=== PATIENT | male | born 1950 | race Hispanic/Latino ===

== ENCOUNTER 2020-02-14 06:27 | Inpatient (IN) | payer OTHER ==
--- NOTE | 2020-02-08 14:39 | Diagnostic Imaging Report ---
EXAMINATION: CHEST 2 VIEWS INDICATION: Pre-operative COMPARISON: None FINDINGS: LINES/TUBES:None LUNGS:The lungs are well-inflated. No focal consolidation or pulmonary edema. PLEURA:No pleural effusion or pneumothorax. MEDIASTINUM:The cardiomediastinal silhouette appears normal in size and shape. BONES/SOFT TISSUES:No acute osseous injury. ABDOMEN:No free air under the diaphragm. IMPRESSION: No focal pneumonia or pulmonary edema. Signed by: Connie Ramirez MD on 02/08/2020 2:35 PM
[2020-02-08 14:57] LABS: BASOPHILS # (AUTO) 0.1 (0.0-0.1); BASOPHILS % 0.5 % (0.0-1.0); EOSINOPHILS # (AUTO) 0.3 (0.0-0.4); HEMATOCRIT 47.5 % (38.2-49.6); HEMOGLOBIN 15.5 g/dL (14.0-18.0); LYMPHOCYTES # (AUTO) 1.5 (1.0-3.2); LYMPHOCYTES % 14.8 % (18.0-39.1); MEAN CORPUSCULAR HEMOGLOBIN 29.4 pg (28-32); MEAN CORPUSCULAR HGB CONC 32.6 g/dL (31-35); MEAN CORPUSCULAR VOLUME 90.1 fL (81-99); MONOCYTES # (AUTO) 0.7 (0.2-0.8); MONOCYTES % 7.5 % (4.4-11.3); NEUTROPHILS # (AUTO) 7.3 (2.1-6.9); NEUTROPHILS % 73.9 % (38.7-80.0); PLATELET COUNT 226 x10e3/uL (140-360); RED BLOOD COUNT 5.27 x10e6/uL (4.3-5.7); RED CELL DISTRIBUTION WIDTH 14.5 % (11.7-14.4)
[2020-02-08 15:18] LABS: ALANINE AMINOTRANSFERASE 11 IU/L (0-55); ALBUMIN 3.6 g/dL (3.5-5.0); ALBUMIN/GLOBULIN RATIO 1.1 (0.8-2.0); ALKALINE PHOSPHATASE 68 IU/L (40-150); ANION GAP 16.9 mmol/L (8-16); BLOOD UREA NITROGEN 16 mg/dL (7-26); BUN/CREATININE RATIO 14 (6-25); CALCIUM 10.5 mg/dL (8.4-10.2); CARBON DIOXIDE 30 mmol/L (22-29); CHLORIDE 100 mmol/L (98-107); CREATININE, SERUM 1.18 mg/dL (0.72-1.25); EST GLOMERULAR FILTRATION RATE > 60 ML/MIN (60-); GLUCOSE 90 mg/dL (74-118); POTASSIUM 3.9 mmol/L (3.5-5.1); SODIUM 143 mmol/L (136-145)
[~2020-02-14] VITALS: Ht 177.8 cm; Wt 113.4 kg
[~2020-02-14 06:27] MED LIST: AMIODARONE HCL200 MG PO; CARVEDILOL12.5 MG PO; FUROSEMIDE40 MG PO; OLMESARTAN/HCTZ PO; POTASSIUM CHLO20 ME1 PO; PRADAXA150 MG PO
[2020-02-14] MEDS ORDERED: CEFAZOLIN SOD 1 GM/NS 50ML 100 ML IV ONE (07:23)
[2020-02-14] MEDS ORDERED: IOPAMIDOL 300MG/ML 50ML INFUS..BTL IV ONE (07:40)
[2020-02-14] MEDS ORDERED: B&O 60MG R/S 60 MG SUPP PR ONE (08:00)
--- NOTE | 2020-02-14 11:21 | NUR ---
RECEIVED PATIENT FROM PACU. PATIENT A/O X3, EVEN RESPIRATIONS ON 2LNC. LUNG SOUNDS CLEAR. HANCOCK IN PLACE WITH ORANGE COLOR URINE. PATIENT DENIES PAIN. RIGHT HAND IV INTACT/PATENT. IVF INFUSING AT ORDERED RATE. CALL LIGHT IN REACH WILL CONTINUE TO MONITOR PATIENT.
[2020-02-14] MEDS ORDERED: KETOROLAC TROMETHAMINE 60 MG/2 ML VIAL IM PRN (11:45)
[2020-02-14] MEDS ORDERED: TRAMADOL HCL 50 MG TAB PO PRN (11:45)
[2020-02-14] MEDS ORDERED: B&O 60MG R/S 60 MG SUPP PR PRN (11:45)
[2020-02-14 12:00] VITALS: BP 166/87
[2020-02-14 12:16] VITALS: BP 166/87
[2020-02-14 12:19] VITALS: BP 166/87
[2020-02-14] MEDS: DEXTROSE 5%/0.45% SOD CHL 1,000 ML IV SCH ×2 (13:03→22:37)
--- NOTE | 2020-02-14 13:19 | Operative Report ---
DATE OF PROCEDURE: 02/14/2020 SURGEON: Parmjit Lopez MD PREOPERATIVE DIAGNOSES: 1. Acute urinary retention. 2. Benign prostatic hyperplasia. 3. Bladder stone. POSTOPERATIVE DIAGNOSES: Benign prostatic hyperplasia and bladder stones, 3 of them and urinary retention. PROCEDURES: Cystoscopy, holmium YAG laser lithotripsy of multiple bladder stones, stone extraction, and transurethral resection and electrode vaporization with plasma button of the prostate. ANESTHESIA: General. FINDINGS: The patient had 3 stones in the bladder, treated with the laser. The patient had a trabeculated bladder with cellules and saccules. The patient has a large prostate. Quite a bit of amount of anterior prostate. 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 HISTORY: A 69-year-old male, who comes to the office complaining of leakage and incontinence of urine. He was found to be in urinary retention and having hydronephrosis bilaterally. Requiring Rivas catheter drainage for a month. Cystoscopy showed stones in the bladder and the patient is brought in for transurethral resection of the prostate and stone treatment. I discussed with him all the complications of the procedure including incontinence of urine. I gave him a pamphlet. The patient agrees with the procedure as planned. PROCEDURE IN DETAIL: With the patient under satisfactory general anesthesia, the patient was placed in the supine position on the operating table. Legs were placed on stirrups. Rivas catheter was removed. The genitalia prepped with pHisoHex solution and draped in the usual manner. Cystoscopy was performed. The stones were visualized. The urethra was normal. At this point, using the laser with a 550 fiber, multiple shocks were given to the stones to break them into smaller fragments and then they were retrieved by using the [employer] evacuator, and this was sent in for pathological specimen. After that was done, cystoscope was removed and the resectoscope was placed in. Resection was done using the loop electrode. The [employer] evacuator was used to remove prostatic chips from the bladder. The loop was then replaced with the plasma button and electrode vaporization of the remaining tissue was done. It was noted that the patient has pelvic lipomatosis, so his prostate was very elongated, did have problems reaching the bladder neck. After the operation of the tissue was done, hemostasis was obtained and at that point, I inspected again the bladder, which was severely trabeculated with saccules and did not notice any remaining bladder stone or prostatic tissue. At this point, the instruments were removed. Rivas catheter was inserted using a catheter introducer and after that was done, the bladder was irrigated and the balloon was inflated. B and O suppository were placed in the rectum. The patient tolerated the procedure well, went to recovery room in satisfactory condition. DISCHARGE INSTRUCTIONS: The patient stayed in the hospital overnight till the next morning, the patient was doing well and had no fever and no clots, and the patient was discharged with a Rivas catheter leg bag and overnight bag. He was given Keflex to take b.i.d. and tramadol for pain. He will be seen in the office in 4 days to remove the Rivas catheter. He is to remain in all his medication except for Pradaxa, which will be started when I check him in the office and make sure his urine is clear. This will be in approximately 7 to 10 days. The patient is to maintain his diet. If the patient stayed an extra day for an undisclosed condition, then a separate dictation will be made for his discharge. MD ARIES Howard/MODL /[id number]
[2020-02-14] MEDS ORDERED: ACETAMINOPHEN 1000 MG/100 ML IV ONE (14:52)
[2020-02-14] MEDS ORDERED: SEVOFLURANE INHAL SOLN 250 ML PEN BTL ONE (14:52)
[2020-02-14] MEDS ORDERED: ROCURONIUM BROMIDE 10 MG/ML 5ML VIAL IV ONE (14:52)
[2020-02-14] MEDS ORDERED: ONDANSETRON HCL INJ 2MG/ML 2ML 2 MG/ML VIAL ONE (14:52)
[2020-02-14] MEDS ORDERED: ATROPINE SULFATE 1 MG/ML VIAL ONE (14:52)
[2020-02-14] MEDS ORDERED: PROPOFOL IV EMULSION 10 MG/ML 20 ML VIAL ONE (14:52)
[2020-02-14] MEDS ORDERED: LIDOCAINE HCL 2% LOCAL INJ 5 ML SDV VIAL INJ ONE (14:52)
[2020-02-14] MEDS ORDERED: SUCCINYLCHOLINE CHLORIDE 20 MG/ML 10ML VIAL ONE (14:52)
[2020-02-14] MEDS ORDERED: NEOSTIGMINE 1 MG/ML 10ML VIAL ONE (14:52)
[2020-02-14] MEDS ORDERED: DEXAMETHASONE SOD PHOS INJ 4 MG/ML VIAL ONE (14:52)
[2020-02-14 16:19] VITALS: BP 149/77
[2020-02-14 20:00] VITALS: BP_SYST 121; BP_SYST 133; BP_DIAS 58; BP_DIAS 69
--- NOTE | 2020-02-14 20:01 | NUR ---
RECIVED PT IN BED AOX3 RESPIRATIONS ARE EVEN AND UNLABORED ,PT HAS F/C DRAINING LIGHT FUNMILAYO COLORED URINE RT HAND D512 NS AT 125 CC/H INFUSING ABD DISTENDED CALL LIGHT WITH IN REACH ,CONTINUE TO MONITOR
[2020-02-14 20:37] VITALS: BP 149/77
[2020-02-15] VITALS: BP 133/58
[2020-02-15 04:00] VITALS: BP 123/74
--- NOTE | 2020-02-15 06:40 | NUR ---
PT RESTING DENIES PAIN ,CALL LIGHT WITH IN REACH ,CONTINUE TO MONITOR
[2020-02-15] MEDS: DEXTROSE 5%/0.45% SOD CHL 1,000 ML IV SCH ×2 (06:49→11:45)
--- NOTE | 2020-02-15 07:21 | NUR ---
BEDSIDE REPORT GIVEN TO THE ONCOMING NURSE
[2020-02-15 09:05] VITALS: BP 135/74
[2020-02-15 10:45] VITALS: BP 135/74
--- NOTE | 2020-02-15 12:19 | NUR ---
PATIENT STATED THAT THE PHYSICIAN SAID THAT HE WANTED THE PATIENT TO TAKE AN ANTIBIOTIC AFTER DISCHARGE HOME, CALL Shahida LEE TO CHECK ON PRESCRIPTION ORDERS, [employer] SWITCHMAN STATED THAT HE WOULD CALL BACK SHORTLY.
[2020-02-15 12:30] VITALS: BP 151/80
--- OUTSIDE RECORDS SUMMARY | 2020-02-15 20:35 | XMS REPORT | Summary of Care ---
Author Author [facility] Organization [facility] Address Unknown Phone Unavailable Encounter MICHELLE Glynn(FIN) [id number] Date(s): 08/07/18 - 08/08/18 [facility] [address] [facility] [facility] [address] [place] [address]- Vital Signs No data available for this section Problem List Condition Effective Dates Status Health Status Informan t Allergic contact Active dermatitis(Confirmed ) Benign essential Active hypertension(Confirm ed) Body mass index Active 38.0-38.9, adult(Confirmed) CPAP (continuous Active positive airway pressure) dependence(Confirmed ) Electrocardiogram 01/16/15 Active abnormal1 History of colonic Active polyps(Confirmed) Impaired fasting Active glucose(Confirmed) Lumbago(Confirmed) Active Mixed Active hyperlipidemia(Confi rmed) Decreased strength Active of lower extremity(Confirmed) Nocturia(Confirmed) Active Obesity(Confirmed) Active Obstructive sleep Active apnea(Confirmed) Lower extremity Active pain, right(Confirmed) Peripheral 01/16/15 Active edema(Confirmed)2 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 2Data migrated from [employer] on 01/22/15. Allergies, Adverse Reactions, Alerts Substance Reaction Severity Status NKFA Active amLODIPine leg edema Active Medications amlodipine/hydrochlorothiazide/olmesartan 10 mg-25 mg-40 mg oral tablet 1 tab, PO, Daily, # 90 tab, 1 Refill(s), Pharmacy: [facility]kr[facility] johnson, Stop amlodipine/HCTZ/valsartan Start Date: 08/07/18 Stop Date: 01/15/19 Status: Discontinued hydrochlorothiazide-olmesartan 25 mg-40 mg oral tablet 1 tab, PO, Daily, # 90 tab, 1 Refill(s), Pharmacy: [facility] Krupa johnson D/C amlodipine/olmesartan/HCTZ Start Date: 02/18/19 Stop Date: 08/17/19 Status: Ordered Metoprolol Succinate ER 50 mg oral tablet, extended release 50 mg = 1 tab, PO, Daily, # 90 tab, 1 Refill(s), Pharmacy: [facility] Start Date: 08/07/18 Stop Date: 02/18/19 Status: Completed Metoprolol Succinate ER 50 mg oral tablet, extended release = 1 tab, PO, Daily, # 90 tab, Refill(s) 1, Pharmacy: [facility] Start Date: 02/18/19 Status: Ordered NIFEdipine 60 mg oral tablet, extended release 60 mg = 1 tab, PO, Daily, # 90 tab, 1 Refill(s), Pharmacy: [facility] Start Date: 02/18/19 Stop Date: 08/17/19 Status: Ordered Results No data available for this section Immunizations Given and Recorded Vaccine Date Status Refusal Reason influenza virus vaccine, inactivated1 04/04/18 Given influenza virus vaccine, inactivated2 04/12/17 Given influenza virus vaccine, inactivated 04/08/16 G iven pneumococcal 23-valent vaccine 07/23/13 Recorde d 1Result Comment: Patient waited 15 min with no reaction. 2Result Comment: Patient waited 15 min with no reaction. Procedures Procedure Date Related Diagnosis Body Site Status Colonoscopy1 05/22/18 Completed Influenza vaccination 04/04/18 Completed Glaucoma monitoring2 02/15/18 Completed Glaucoma monitoring3 11/21/17 Completed Comprehensive eye examination4 09/2016 Complet ed Pneumococcal vaccination5 07/23/13 Completed Colonoscopy6 2011 Completed Foot joint operations7 Completed Knee joint operation8 Completed 1single sessile 5 mm polyp of benign appearance s/p polypectomy, int hemorrhoids, repeat 3 years 2IOP adequate, continue current eye drops, 3open angle glaucoma, IOP adequate, f/u 3 mo 4primary open angle glaucoma of both eyes 5Pneumovax 6one polyp removed, repeat in 5 years 7due to work injury - 2013 8due to work injury - 2013 Social History Social History Type Response Substance Abuse Use: None. Exercise Exercise type: none. Employment/School Status: Retired. 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 Alcohol Current, Type Beer. Alcoho l use interferes with work or home: No. Drinks more than intended: No. Others hurt by drinking: No. Ready to change: No. Household alcohol concerns: No.1 Smoking Status Never smoker; Concerns abou t tobacco use in household: No; Exposure to Tobacco Smoke None; Cigarette Smoking L ast 365 Days No; Reg Smoking Cessation Counseling No entered on: 01/31/19 1On Occasion Assessment and Plan No data available for this section
--- OUTSIDE RECORDS SUMMARY | 2020-02-15 20:35 | XMS REPORT | Continuity of Care Document ---
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 DOPP Active 01/13/2017 [facility] ROUTINE GENERAL MEDICAL EXAMINATION AT A HEALTH CARE FACILITY Active 01/16/2015 Condition 01/22/2015 [facility] PROSTATE NEOPLASM SCREENING Ac tive 01/16/2015 Condition 01/22/2015 [facility] SCREENING FOR MALIGNANT NEOPLASM, COLON Active 01/16/2015 Condition 01/22/2015 [facility] BENIGN ESSENTIAL HYPERTENSION Active 01/16/2015 Condition 01/22/2015 [facility] PERIPHERAL EDEMA Active 01/16/2015 Condition 01/22/2015 [facility] ABNORMAL EKG Active 01/16/2015 Condition 01/22/2015 [facility] SCREENING FOR GLAUCOMA Active 01/16/2015 Condition 01/22/2015 [facility] Abnormal ECG (finding) Active 01/16/2015 Problem 08/04/2019 Data migrated from [employer] on . [facility] Peripheral edema (disorder) Ac tive 01/16/2015 Problem 08/04/2019 Data migrated from [employer] on . [facility] Benign essential hypertension (disorder) Active Problem 08/04/2019 [facility] Claudication (finding) Active Problem 01/22/2017 [facility] Dependence on continuous positive airway pressure ventilation (finding) Active Prob birdie 08/04/2019 [facility] History of polyp of colon (situation) [facility] Impaired fasting glycaemia (disorder) Active Problem [facility] Low back pain (disorder) Active Problem 08/04/2019 [facility] Mixed hyperlipidemia (disorder) Active [facility] Obstructive sleep apnea syndrome (disorder) Active Problem 08/04/2019 [facility] Primary open angle glaucoma (disorder) Active [facility] Reducible umbilical hernia (disorder) Active [facility] Screening status (finding) Act emerson [facility] Thyroid function tests abnormal (finding) Active Problem 01/22/2017 [facility] Vascular disorder of lower extremity (disorder) Active Problem 08/04/2019 [facility] Venous insufficiency of leg (disorder) Active [facility] Pain in right leg (finding) Ac tive Problem 06/2019 [facility] Allergic contact dermatitis (disorder) Active [facility] Body mass index 30+ - obesity (finding) Active Problem 08/04/2019 [facility] Increased hemoglobin (finding) Active [facility] Muscle weakness of limb (finding) Active [facility] Nocturia (finding) Active Problem 08/04/2019 [facility] Obesity (disorder) Active Problem 08/04/2019 [facility] Pain in left leg (finding) Act emerson [facility] Raised TSH level (finding) Res olved Problem [facility] Subclinical hypothyroidism (disorder) Active [facility] Vaccination required (finding) Active [facility] Morbid obesity (disorder) Acti ve [facility] Patient encounter status (finding) Active Problem [facility] EDEMA, UNSPECIFIED Active [facility] VENOUS INSUFFICIENCY (CHRONIC) (PERIPHER Active [facility] PERIPHERAL VASCULAR DISEASE, UNSPECIFIED Active [facility] Medications Medication Details Route Status Patient Instructions Ordering Provider Order Date Source NIFEdipine 60 mg oral tablet, extended release 60 mg = 1 tab, PO, Daily, # 90 tab, 1 Refill(s), Pharmacy: [facility] Active 02/19/2019 [facility] Hydrochlorothiazide 25 MG / Olmesartan m edoxomil 40 MG Oral Tablet 1 tab, PO, Daily, # 90 tab, 1 Refill(s), Pharmacy: [facility], D/C amlodipine/olmesartan/HCTZ Active 02/19/2019 [facility] Metoprolol Succinate ER 50 mg oral table t, extended release = 1 tab, PO, Daily, # 90 tab, Refill(s) 1, Pharmacy: [facility] Active 02/19/2019 [facility] NIFEdipine 60 mg oral tablet, extended release 60 mg = 1 tab, PO, Daily, # 90 tab, 0 Refill(s), [id number] Active 01/24/2019 [facility] Hydrochlorothiazide 25 MG / Olmesartan m edoxomil 40 MG Oral Tablet 1 tab, PO, Daily, # 90 tab, 1 Refill(s), Pharmacy: [facility], D/C amlodipine/olmesartan/HCTZ Active 12/01/2018 [facility] Clonidine Hydrochloride 0.2 MG Oral Tablet 0.2 mg = 1 tab, PO, BID, # 180 tab, 1 Refill(s), Pharmacy: [facility] Active 12/01/2018 [facility] Clonidine Hydrochloride 0.1 MG Oral Tablet = 1 tab, PO, BID, # 180 tab, Refill(s) 1, Pharmacy: [facility] Active 11/04/2018 [facility] Metoprolol Succinate ER 50 mg oral table t, extended release 50 mg = 1 tab, PO, Daily, # 90 tab, 1 Re fill(s), Pharmacy: [facility] No Longer Active 08/07/2018 [facility] Amlodipine 10 MG / Hydrochlorothiazide 2 5 MG / Olmesartan medoxomil 40 MG Oral Tablet 1 tab, PO, Daily, # 90 tab, 1 Refill(s), Pharmacy: [facility], Stop amlodipine/HCTZ/valsartan No Longer Active 08/07/2018 [facility] baclofen 10 mg oral tablet 10 mg = 1 tab, PO, BID, PRN Spasms, # 40 tab, 0 Refill(s), [id number] Active 06/19/2018 Medical [facility] Azithromycin 5 Day Dose Pack 250 mg oral tablet See Instructions, Take 2 tablets by mouth the first day then 1 tablet by mouth days 2-5., X 5 day, # 6 tab, 0 Refill(s), [id number] No Longer Active 06/19/2018 [facility] diclofenac sodium 75 mg oral enteric coa leonardo, delayed-release tablet 75 mg = 1 tab, PO, BID, PRN Pain, # 40 t ab, 0 Refill(s), [id number] Active 06/19/2018 [facility] Amlodipine 10 MG / Hydrochlorothiazide 2 5 MG / Olmesartan medoxomil 40 MG Oral Tablet 1 tab, PO, Daily, X 90 day, # 90 tab, 1 Refill(s), Pharmacy: [facility], Stop amlodipine/HCTZ/valsartan No Longer Active 04/05/2018 [facility] Clonidine Hydrochloride 0.1 MG Oral Tablet 0.1 mg = 1 tab, PO, BID, # 180 tab, 1 Refill(s), Pharmacy: [facility] Active 11/03/2017 [facility] Amlodipine 10 MG / Hydrochlorothiazide 2 5 MG / valsartan 320 MG Oral Tablet 1 tab, PO, Daily, # 90 tab, 1 Refill(s), Pharmacy: [facility], Discontinue Tribenzor HCT Active 11/03/2017 [facility] Metoprolol Succinate ER 50 mg oral table t, extended release 50 mg = 1 tab, PO, Daily, # 90 tab, 1 Re fill(s), Pharmacy: [facility] No Longer Active 10/07/2017 [facility] Hydrocortisone butyrate 0.001 MG/MG Topical Ointment 1 appl, TOP, Daily, PRN skin irritation, # 15 gm, 0 Refill(s), [id number] Active 08/23/2017 [facility] METOPROLOL SUCCINATE ER 50 MG [id number] Take one tablet by mouth daily. Active 01/16/2015 [facility] TRIBENZOR 40-10-25 MG TABS Sonny e one tablet by mouth daily. Active 01/16/2015 [facility] CLONIDINE HCL 0.1 MG TABS Take one tablet by mouth twice daily. Active 01/16/2015 [facility] ECOTRIN LOW STRENGTH 81 MG TBEC Take one tablet by mouth daily. Active 01/16/2015 [facility] LATANOPROST 0.005 % SOLN insti ll 1 drop into both eyes at bedtime Active 01/16/2015 [facility] VITAMIN E CAPS Take one capsul e by mouth daily. Active 01/16/2015 [facility] VITAMIN D TABS Take one tablet by mouth daily. Active 01/16/2015 [facility] VITAMIN B COMPLEX TABS Take on e tablet by mouth daily. Active 01/16/2015 [facility] JOBST FOR MEN 15-20MMHG LG MISC Use during waking hours and remove at bedtime. Active 01/16/2015 [facility] METOPROLOL SUCCINATE ER 50 MG [id number] Take one tablet by mouth daily. Active 01/16/2015 [facility] Allergies, Adverse Reactions, Alerts Substance Category Reaction Severity Reaction type Status Date Reported Comments Source NKFA Assertion Food allergy Active [facility] amLODIPine Assertion leg edema Propensity to adverse reacti ons to drug Active [facility] No Known Medication Allergies Assertion Drug aller gy [facility] Immunizations Immunization Date Given Site Status Last Updated Comments Source influenza virus vaccine, inactivated<sup>1</sup> 04/04/2018 Right Deltoid completed [facility] Result Comment: Patient waited 15 min with no reaction. [facility] influenza virus vaccine, inactivated<sup>2</sup> 04/12/2017 Left Deltoid completed [facility] Result Comment: Patient waited 15 min with no reaction. [facility] influenza virus vaccine, inactivated<sup>1</sup> 04/12/2017 Left Deltoid completed [facility] Result Comment: Patient waited 15 min with no reaction. [facility] influenza virus vaccine, inactivated 04/08/2016 Right Deltoid completed [facility] pneumococcal 23-valent vaccine 07/23/2013 completed [facility] t Results Order Name Results Value Reference Range Date Interpretation Comments Source Chemistry HEMOCCULT Negative 01/22/2015 [facility] Chemistry HEMOCCULT Negative 01/21/2015 Medical [facility] Chemistry HEMOCCULT Negative 01/20/2015 Medical [facility] Chemistry TSH 3.310 0.360 - 3.740 01/16/2015 Medical [facility] Chemistry CHOLESTEROL 195 - 199 01/16/2015 Medical [facility] Chemistry TRIGLYCERIDE 163 - 149 01/16/2015 [facility] Chemistry HDL 37 >=61 01/16/2015 [facility] Chemistry LDL 125 - 99 01/16/2015 [facility] Chemistry SODIUM 140 MEQ/L 135 - 145 01/16/2015 Medical [facility] Chemistry POTASSIUM 3.8 MEQ/L 3.5 - 5.1 01/16/2015 [facility] Chemistry CREATININE 1.0 0.5 - 1.4 01/16/2015 [facility] Chemistry BUN 13 7 - 22 01/16/2015 [facility] Chemistry BUN/CREAT 13 6 - 25 01/16/2015 [facility] Chemistry ALBUMIN 3.8 3.5 - 5.0 01/16/2015 [facility] Chemistry CALCIUM 10.2 8.5 - 10.5 01/16/2015 [facility] Chemistry SGPT (ALT) 44 0 - 65 01/16/2015 [facility] Chemistry SGOT (AST) 27 0 - 37 01/16/2015 [facility] Chemistry ALK PHOS 65 39 - 136 01/16/2015 [facility] Chemistry PSA 0.37 0.00 - 4.00 01/16/2015 [facility] Hematology HGB 17.0 14.0 - 18.0 01/16/2015 [facility] Hematology HCT 51.5 42.0 - 54.0 01/16/2015 [facility] Hematology PLATELETS 206 K/CMM 133 - 450 01/16/2015 [facility] Pathology Reports No Data Provided for This Section Diagnostic Reports Report Value Date Source Chest wo contrast CT Radiation Dose CTDIVOL = 0 (mGy): DLP = 884.65 (mGy-cm) PROCEDURE INFORMATION: Exam: CT Chest Without Contrast Exam date and time: 08/01/2019 10:21 AM Age: 69 years old Clinical indication: Shortness of breath; Additional info: /r06.02, shortness of breath TECHNIQUE: Imaging protocol: Computed tomography of the chest without contrast. Total DLP: 884.65 mGy-cm Radiation optimization: All CT scans at this facility use at least one of these dose optimization techniques: automated exposure control; mA and/or kV adjustment per patient size (includes targeted exams where dose is matched to clinical indication); or iterative reconstruction. COMPARISON: CR CHEST 2 VIEWS DX 06/19/2019 10:42 AM FINDINGS: Tracheobronchial tree: The central bronchi are patent. Lungs: No consolidation. 3 mm left perifissural nodule likely benign. No honeycombing. Mild bibasilar atelectasis. Pleural space: Unremarkable. No pneumothorax. No pleural effusion. Heart: Mild cardiomegaly. No pericardial effusion. Coronary artery calcification. Aorta: Atherosclerotic calcification. No aortic aneurysm. Lymph nodes: Unremarkable. No enlarged lymph nodes. Bones/joints: Degenerative changes of the spine are present.No acute fracture. Soft tissues: Unremarkable. Visualized abdomen: Cholelithiasis. 14 mm right adrenal gland nodule consistent with adenoma. IMPRESSION: 1. No suspicious pulmonary nodule or con solidation 2. No suspicious lymphadenopathy 3. Cholelithiasis Ruby Guzmán MD On 08/02/2019 08:53:09; [id number] 08/01/2019 [facility] 2 views DX PROCEDURE INF ORMATION: Exam: XR Chest, 2 Views Exam date and time: 06/19/2019 10:42 AM Age: 69 years old Clinical history: Shortness of breath; Additional info: /r06.02 shortness of breath TECHNIQUE: Imaging protocol: XR of the chest Views: 2 views. PA and Lateral COMPARISON: No relevant prior studies available. FINDINGS: Lungs: No focal infiltrate identified within the lungs and no edema. Pleural space: No pleural effusions and no pneumothorax. Heart/Mediastinum: Enlarged cardiac silhouette. Aortic calcification. Mediastinal structures otherwise unremarkable. Bones/joints: Degenerative changes are seen about the thoracic spine. IMPRESSION: 1. Enlarged cardiac silhouette. 2. Aortic calcification. 3. Otherwise unremarkable two-view chest . Eddie Le MD On 06/19/2019 11:02:49; [id number] 06/19/2019 [facility] Ext Lower Arterial Doppler unilat US Patient Name: KELSI KAMINSKI : 1950; Age: 69 years y/o Male MR: [id number] Study: Ext Lower Arterial Doppler unilat US 03/16/2019 9:16 CDT CLINICAL INDICATION: Left leg pain; COMPARISON: Arterial ultrasound on 01/19/2017 TECHNIQUE: Left lower extremity arterial Doppler evaluation without pressures was performed with de la garza scale, color scale and Doppler waveforms evaluation. FINDINGS: LEFT LOWER EXTREMITY: Triphasic waveforms and normal peak systolic velocities within the left common femoral artery, superficial femoral artery, popliteal artery, posterior tibial artery, and dorsalis pedis artery. There is no arterial Doppler evidence of significant peripheral arterial occlusive disease. If there is further concern recommend CTA or magnetic resonance angiography for evaluation. IMPRESSION: No hemodynamically significant stenosis within the left lower extremity arteries. : [id number] 03/16/2019 [facility] Lower Arterial Doppler bilat US ARTERIAL DOPPLER BILATERAL LOWER EXTREMITIES: HISTORY: Peripheral arterial disease. TECHNIQUE: Triplex evaluation of the femoropopliteal segments and distal runoff at the ankles was done. FINDINGS: Mild atherosclerotic changes in the femoropopliteal segments are demonstrated. Triphasic waveforms are seen throughout the lower extremity arterial vasculature. The following peak systolic velocity measurements were obtained: RIGHT LOWER EXTREMITY: Common femoral: 157 cm/s Proximal superficial femoral: 91 cm/s Mid superficial femoral: 100 cm/s Distal superficial femoral: 99 cm/s Popliteal: 101 cm/s Anterior tibial ankle: 35 cm/s Posterior tibial ankle: 136 cm/s LEFT LOWER EXTREMITY: Common femoral: 117 cm/s Proximal superficial femoral: 125 cm/s Mid superficial femoral: 146 cm/s Distal superficial femoral: 128 cm/s Popliteal: 64 cm/s Anterior tibial ankle: 56 cm/s Posterior tibial ankle: 63 cm/s IMPRESSION: 1. Velocity decrease in the left poplite al artery and runoff vessels suggesting flow restriction in the distal left femoropopliteal segment. Correlation with segmental pressures and CLARA is suggested. 2. No significant flow restriction in th e right lower extremity. [id number] 01/19/2017 [facility] Lower Venous Doppler Bilat US Patient Name: KELSI KAMINSKI : 1950; Age: 66 years y/o Male MR: [id number] Study: Ext Lower Venous Doppler Bilat US 01/19/2017 2:25 PM CDT Ordering Physician: Yesi Agudelo MD Comparison: None Clinical Indication: - edema; bilateral lower extremity swelling There is good augmentation, compression and respiratory phasicity of the deep venous structures of the lower extremities bilaterally. A complex hypoechoic fluid collection is noted at the left popliteal fossa measuring 5.3 x 2.0 x 3.8 cm. Benign-appearing hyperplastic lymph node is noted at the proximal right thigh measuring 3.7 x 2.8 x 0.7 cm. IMPRESSION: 1. No deep venous thrombosis noted at th e lower extremities bilaterally. 2. Left popliteal fossa Schaffer's cyst benita suring 5.3 x 2.0 x 3.8 cm. 3.Benign-appearing hyperplastic lymph no de is noted at the proximal right thigh measuring 3.7 x 2.8 x 0.7 cm. SL: [id number] 01/19/2017 [facility] Consultation Notes No Data Provided for This Section Discharge Summaries No Data Provided for This Section History and Physicals No Data Provided for This Section Vital Signs Vital Sign Value Date Comments Source Systolic (mm Hg) 136 03/09/2019 [facility] Diastolic (mm Hg) 88 03/09/2019 [facility] Heart Rate 80 03/09/2019 [facility] Respitory Rate 16 03/09/2019 [facility] Temperature Oral (F) 97.2 F 03/09/2019 [facility] Height 177.8 cm 03/09/2019 [facility] Weight 122.841 03/09/2019 [facility] BMI Calculated 38.86 03/09/2019 [facility] Systolic (mm Hg) 144 01/31/2019 [facility] Diastolic (mm Hg) 84 01/31/2019 [facility] Heart Rate 79 01/31/2019 [facility] Respitory Rate 16 01/31/2019 [facility] Temperature Oral (F) 97.1 F 01/31/2019 [facility] Height 177.8 cm 01/31/2019 [facility] Weight 122.386 01/31/2019 [facility] BMI Calculated 38.71 01/31/2019 [facility] Height 177.8 cm 01/15/2019 [facility] Weight 126.591 01/15/2019 [facility] BMI Calculated 40.04 01/15/2019 [facility] Systolic (mm Hg) 180 01/15/2019 [facility] Diastolic (mm Hg) 118 01/15/2019 [facility] Temperature Oral (F) 97.2 F 01/15/2019 [facility] Respitory Rate 14 01/15/2019 [facility] Heart Rate 72 01/15/2019 [facility] Height 177.8 cm 12/01/2018 [facility] BMI Calculated 39.25 12/01/2018 [facility] Weight 124.091 12/01/2018 [facility] Systolic (mm Hg) 141 12/01/2018 [facility] Diastolic (mm Hg) 80 12/01/2018 [facility] Heart Rate 62 12/01/2018 [facility] Temperature Oral (F) 96.8 F 12/01/2018 [facility] Respitory Rate 16 12/01/2018 [facility] Height 177.8 cm 08/04/2018 [facility] Weight 123.636 08/04/2018 [facility] BMI Calculated 39.11 08/04/2018 [facility] Systolic (mm Hg) 131 08/04/2018 [facility] Diastolic (mm Hg) 78 08/04/2018 [facility] Respitory Rate 16 08/04/2018 [facility] Temperature Oral (F) 97 F 08/04/2018 [facility] Heart Rate 61 08/04/2018 [facility] Height 177.8 cm 06/19/2018 [facility] Temperature Oral (F) 98.9 F 06/19/2018 [facility] Weight 120.455 06/19/2018 [facility] BMI Calculated 38.1 06/19/2018 [facility] Systolic (mm Hg) 141 06/19/2018 [facility] Diastolic (mm Hg) 83 06/19/2018 [facility] Respitory Rate 16 06/19/2018 [facility] Heart Rate 64 06/19/2018 [facility] BMI Calculated 39.02 06/05/2018 [facility] Weight 123.352 06/05/2018 [facility] Height 177.8 cm 06/05/2018 [facility] Systolic (mm Hg) 174 06/05/2018 [facility] Diastolic (mm Hg) 100 06/05/2018 [facility] Heart Rate 74 06/05/2018 [facility] Respitory Rate 14 06/05/2018 [facility] Temperature Oral (F) 98.1 F 06/05/2018 [facility] Weight 123.295 04/04/2018 [facility] BMI Calculated 41.33 04/04/2018 [facility] Temperature Oral (F) 97 F 04/04/2018 [facility] Height 172.72 cm 04/04/2018 [facility] Systolic (mm Hg) 141 04/04/2018 [facility] Diastolic (mm Hg) 85 04/04/2018 [facility] Respitory Rate 16 04/04/2018 [facility] Heart Rate 61 04/04/2018 [facility] BMI Calculated 40.19 12/02/2017 [facility] Height 177.8 cm 12/02/2017 [facility] Weight 127.045 12/02/2017 [facility] Systolic (mm Hg) 129 12/02/2017 [facility] Diastolic (mm Hg) 84 12/02/2017 [facility] Respitory Rate 14 12/02/2017 [facility] Heart Rate 77 12/02/2017 [facility] Temperature Oral (F) 97.4 F 12/02/2017 [facility] Height 177.8 cm 08/23/2017 [facility] BMI Calculated 40.4 08/23/2017 [facility] Weight 127.727 08/23/2017 [facility] Systolic (mm Hg) 150 08/23/2017 [facility] Diastolic (mm Hg) 83 08/23/2017 [facility] Temperature Oral (F) 97.6 F 08/23/2017 [facility] Heart Rate 63 08/23/2017 [facility] Respitory Rate 16 08/23/2017 [facility] Weight 276 01/16/2015 [facility] Height 70 0 01/16/2015 [facility] Temperature Oral (F) 97.9 F 01/16/2015 [facility] Respitory Rate 12 01/16/2015 [facility] Systolic (mm Hg) 157 01/16/2015 [facility] Diastolic (mm Hg) 86 01/16/2015 [facility] Heart Rate 66 01/16/2015 [facility] Encounters Location Location Details Encounter Type Encounter Number Reason For Visit Attending Provider ADM Date DC Date Status Source [facility] Lab Report [id number] Yesi Agudelo MD 01/16/2015 01/16/2015 [facility] Lab Report [id number] Yesi Agudelo MD 01/22/2015 01/22/2015 [facility] Outpatient [id number] YESIPolly AGUDELO 05/27/2015 Active [facility] Outpatient [id number] YESI AGUDELO 07/22/2015 Active [facility] Outpatient [id number] YESI AGUDELO 08/05/2015 Active [facility] Outpatient [id number] YESI AGUDELO 08/29/2015 Active [facility] Outpatient [id number] YESI AGUDELO 04/08/2016 Active [facility] [id number] YESI AGUDELO 04/12/[address] [facility] Outpatient [id number] YESI AGUDELO 07/08/2016 Active [facility] Out[facility] [id number] YESI AGUDELO 10/07/2016 Active [facility] Out[facility] [id number] YESI AGUDELO 01/10/2017 Active [facility] Outpatient [id number] Yesi Agudelo 01/19/2017 01/20/2017 [facility] Outpatient [id number] YESI AGUDELO 04/12/2017 Active [facility] [id number] YESI AGUDELO 08/23/2017 [facility] Outpatient [id number] Yesi Agudelo 08/23/2017 08/24/2017 [facility] Phone Message [id number] 10/07/2017 10/09/2017 [facility] Phone Message [id number] 11/02/2017 11/04/2017 [facility] Outpatient [id number] YESI AGUDELO 12/02/2017 [facility] [id number] Yesi Agudelo 12/02/2017 12/03/2017 [facility] Outpatient [id number] YESI AGUDELO 04/04/2018 Active [facility] [facility] [id number] Yesi Agudelo 04/04/2018 04/05/2018 [facility] [id number] STAN FRITZ 06/05/2018 Active [facility] [id number] Yesi Agudelo 06/05/2018 06/06/2018 [facility] Outpatient [id number] YESI AGUDELO 06/19/2018 Active [facility] Outpatient [id number] Yesi Agudelo 06/19/2018 06/20/2018 [facility] Outpatient [id number] YESI AGUDELO 08/04/2018 Active [facility]patient [id number] Yesi Agudelo 08/04/2018 08/05/2018 [facility] Phone Message [id number] 08/07/2018 08/09/2018 [facility] Phone Message [id number] 11/04/2018 11/05/2018 [facility] Outpatient [id number] Yesi Agudelo 12/01/2018 Active [facility] Out[facility] [id number] Yesi Agudelo 12/01/2018 12/02/2018 [facility] Outpatient [id number] Yesi Agudelo 01/15/2019 Active [facility] Outpatient [id number] Yesi Agudelo 01/15/2019 01/16/2019 [facility] Phone Message [id number] 01/23/2019 01/25/2019 [facility] Outpatient [id number] Yesi Agudelo 01/31/2019 Active [facility]patient [id number] Yesi Agudelo 01/31/2019 02/01/2019 [facility] Outpatient [id number] Yesi Agudelo 03/09/2019 Active [facility] [id number] Yesi Agudelo 03/09/2019 03/10/2019 [facility] Outpatient [id number] Yesi Agudelo 03/16/2019 03/17/2019 [facility] Between Visit [id number] 03/21/2019 03/22/2019 [facility] Outpatient [id number] Yesi Agudelo 04/03/2019 Active [facility] Outpatient [id number] Yesi Agudelo 04/03/2019 Active [facility] Primary [facility] Ambulatory Pre-Reg [id number] Yesi Agudelo 04/03/2019 04/03/2019 [facility] Ambulatory Pre-Reg [id number] Yesi Agudelo 04/03/2019 04/03/2019 [facility] Outpatient [id number] Tomi Hassan 06/19/2019 06/20/2019 [facility] Outpatient [id number] Tomi Hassan 08/01/2019 08/02/2019 [facility] Procedures Procedure Code Date Perfomer Comments Source Colonoscopy<sup>1</sup> [id number] 05/22/2018 single sessile 5 mm polyp of benign appearance s/p polypectomy, int hemorrhoids, repeat 3 years [facility] Influenza vaccination [id number] 04/04/2018 [facility] Glaucoma monitoring<sup>2</sup> [id number] 02/15/2018 IOP adequate, continue current eye drops, [facility] Glaucoma monitoring<sup>3</sup> [id number] 11/21/2017 open angle glaucoma, IOP adequate, f/u 3 mo [facility] Glaucoma monitoring<sup>1</sup> [id number] 11/21/2017 open angle glaucoma, IOP adequate, f/u 3 mo [facility] Glaucoma monitoring<sup>4</sup> [id number] 08/29/2017 open angle glaucoma and IOP is adequate, continue meds [facility] Glaucoma monitoring<sup>5</sup> [id number] 05/17/2017 glaucoma, IOP adequate, f/u 3 mo [facility] Comprehensive eye examination<sup>4</sup> [id number] 09/15/2016 primary open angle glaucoma of both eyes [facility] Comprehensive eye examination<sup>6</sup> [id number] 09/15/2016 primary open angle glaucoma of both eyes [facility] Comprehensive eye examination<sup>3</sup> [id number] 09/15/2016 primary open angle glaucoma of both eyes [facility] Pneumococcal vaccination<sup>5</sup> [id number] 07/23/2013 Pneumovax [facility] Pneumococcal vaccination<sup>7</sup> 95448919 07/23/2013 Pneumovax [facility] Colonoscopy<sup>6</sup> [id number] 07/18/2011 one polyp removed, repeat in 5 years [facility] Colonoscopy<sup>8</sup> [id number] 07/18/2011 one polyp removed, repeat in 5 years [facility] Colonoscopy<sup>4</sup> 360740 07/18/2011 one polyp removed, repeat in 5 years [facility] Foot joint operations<sup>2</sup> [id number] due to wor k injury - 2013 [facility] Knee joint operation<sup>3</sup> [id number] due to wor k injury - [facility] Foot joint operations<sup>7</sup> 602134527 due to wor k injury - [facility] Knee joint operation<sup>8</sup> 534487986 due to wor k injury - 2013 [facility] Foot joint operations<sup>9</sup> [id number] due to wor k injury - [facility] Knee joint operation<sup>10</sup> [id number] due to wor k injury - 2013 [facility] Foot joint operations<sup>5</sup> [id number] due to wor k injury - 2013 [facility] Knee joint operation<sup>6</sup> [id number] due to wor k injury - [facility] Assessment and Plan No Data Provided for This Section Plan of Care No Data Provided for This Section Social History Social History Date Source Social History TypeResponse Alcohol Current, Type Beer. Alcohol use interferes with work or home: No. Drinks more than intended: No. Others hurt by drinking: No. Ready to change: No. Household alcohol concerns: No.1 Employment/School Status: Retired. Work/School description: [employer]. Exercise Exercise type: none. Substance Abuse Use: None. Smoking Status Never smoker; Concerns about tobacco use in household: No; Exposure to Tobacco Smoke None; Cigarette Smoking Last 365 Days No; Reg Smoking Cessation Counseling No entered on: 03/09/19 1On Occasion 06/05/2018 [facility] Social History TypeResponse Alcohol Current, Type Beer. Alcohol use interferes with work or home: No. Drinks more than intended: No. Others hurt by drinking: No. Ready to change: No. Household alcohol concerns: No.1 Employment/School Status: Retired. Work/School description: [employer]. Exercise Exercise type: none. Substance Abuse Use: None. Smoking Status Never smoker; Concerns about tobacco use in household: No; Exposure to Tobacco Smoke None; Cigarette Smoking Last 365 Days No; Reg Smoking Cessation Counseling No entered on: 03/09/19 1On Occasion 06/05/2018 [facility] Family History No Data Provided for This Section Advance Directives No Data Provided for This Section Functional Status No Data Provided for This Section
--- OUTSIDE RECORDS SUMMARY | 2020-02-15 20:35 | XMS REPORT | Summary of Care ---
Author Author [facility] Organization [facility] Address Unknown Phone Unavailable Encounter MICHELLE Glynn(FIN) [id number] Date(s): 01/19/17 - 01/19/17 [facility] [address] [place] [address]- [phone] Discharge Disposition: Home or Self Care Attending Physician: Yesi Baxter MD Referring Physician: Yesi Baxter MD Vital Signs No data available for this section Problem List Condition Effective Dates Status Health Status Informan t Benign essential Active hypertension(Confirm ed) Claudication(Confirm Active ed) CPAP (continuous Active positive airway pressure) dependence(Confirmed ) Electrocardiogram 01/16/15 Active abnormal1 History of colonic Active polyps(Confirmed) Impaired fasting Active glucose(Confirmed) Lumbago(Confirmed) Active Mixed Active hyperlipidemia(Confi rmed) Morbid Active obesity(Confirmed) Obstructive sleep Active apnea(Confirmed) Annual physical Active exam(Confirmed) Peripheral 01/16/15 Active edema(Confirmed)2 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 2Data migrated from [employer] on 01/22/15. Allergies, Adverse Reactions, Alerts Substance Reaction Severity Status NKDA Active Medications No data available for this section Results No data available for this section Immunizations Given and Recorded Vaccine Date Status Refusal Reason influenza virus vaccine, inactivated 04/08/16 G iven pneumococcal 23-valent vaccine 07/23/13 Recorde d Procedures Procedure Date Related Diagnosis Body Site Colonoscopy1 2011 Foot joint operations2 Knee joint operation3 1one polyp removed, repeat in 5 years 2due to work injury - 2014 3due to work injury - 2014 Social History Social History Type Response Substance Abuse Use: None. Exercise Exercise type: none. Employment/School Status: Retired. 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 Alcohol Current, Type Beer. Alcoho l use interferes with work or home: No. Drinks more than intended: No. Others hurt by drinking: No. Ready to change: No. Household alcohol concerns: No.1 Smoking Status Never smoker; Concerns abou t tobacco use in household: No; Exposure to Tobacco Smoke None; Cigarette Smoking L ast 365 Days No; Reg Smoking Cessation Counseling No 1On Occasion Assessment and Plan No data available for this section
--- OUTSIDE RECORDS SUMMARY | 2020-02-15 20:35 | XMS REPORT | Summary of Care ---
Author Author [facility] Organization [facility] Address Unknown Phone Unavailable Encounter MICHELLE Glynn(FIN) [id number] Date(s): 01/15/19 - 01/15/19 [facility] [address] [facility] [address] [place] [address]- Discharge Disposition: Home or Self Care Attending Physician: Yesi Baxter MD Vital Signs Most recent to 1 oldest [Reference Range]: Height 177.8 cm (01/15/19 11:26 AM) Temperature Oral 97.2 DegF [96.4-99.1 DegF] (01/15/19 11:26 AM) Blood Pressure 180/118 mmHg [90-140/60-90 mmHg] *HI* (01/15/19 11:26 AM) Respiratory Rate 14 BRMIN [14-20 BRMIN] (01/15/19 11:26 AM) Peripheral Pulse 72 bpm Rate [60-100 bpm] (01/15/19 11:26 AM) Weight 126.591 kg (01/15/19 11:26 AM) Body Mass Index 40.04 m2 (01/15/19 11:26 AM) Problem List Condition Effective Dates Status Health [...] both lower extremities(Confirme d) 1Data migrated from [employer] on 01/22/15. 2Data migrated from [employer] on 01/22/15. Allergies, Adverse Reactions, Alerts No Known Medication Allergies Substance Reaction Severity Status NKFA Active Medications No Known Medications Results No data available for this section [...] none. Employment/School Status: Retired. 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 Alcohol Current, Type Beer. Alcoho l use interferes with work or home: No. Drinks more than intended: No. Others hurt by drinking: No. Ready to change: No. Household alcohol concerns: No.1 Smoking Status Never smoker; Concerns abou t tobacco use in household: No; Exposure to Tobacco Smoke None; Cigarette Smoking L ast 365 Days No; Reg Smoking Cessation Counseling No entered on: 01/15/19 1On Occasion Assessment and Plan No data available for this section
--- OUTSIDE RECORDS SUMMARY | 2020-02-15 20:35 | XMS REPORT | Summary of Care ---
Author Author [facility] Organization [facility] Address Unknown Phone Unavailable Encounter HQ Renard(FIN) [id number] Date(s): 08/04/18 - 08/04/18 [facility] [address] [facility] [address] [place] [address]- Discharge Disposition: Home or Self Care Attending Physician: Yesi aBxter MD Vital Signs Most recent to 1 oldest [Reference Range]: Height 177.8 cm (08/04/18 11:28 AM) Temperature Oral 97 DegF [96.4-99.1 DegF] (08/04/18 11:28 AM) Blood Pressure 131/78 mmHg [90-140/60-90 mmHg] (08/04/18 11:28 AM) Respiratory Rate 16 BRMIN [14-20 BRMIN] (08/04/18 11:28 AM) Peripheral Pulse 61 bpm Rate [60-100 bpm] (08/04/18 11:28 AM) Weight 123.636 kg (08/04/18 11:28 AM) Body Mass Index 39.11 m2 (08/04/18 11:28 AM) Problem List Condition Effective Dates Status [...] both lower extremities(Confirme d) 1Data migrated from [employer] (roll[employer]to) on 01/22/15. 2Data migrated from [employer] (roll[employer]to) on 01/22/15. Allergies, Adverse Reactions, Alerts Substance Reaction Severity Status NKFA Active amLODIPine leg edema Active Medications No Known Medications Results No [...] none. Employment/School Status: Retired. 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 Alcohol Current, Type Beer. Alcoho l use [...]
--- OUTSIDE RECORDS SUMMARY | 2020-02-15 20:35 | XMS REPORT | Summary of Care ---
Author Author [facility] Organization [facility] Address Unknown Phone Unavailable Encounter HQ Renard(FIN) [id number] Date(s): 11/02/17 - 11/03/17 [facility] [address] [facility], [address] [place], [place] [address]- [phone] Vital Signs No data available for this section Problem List Condition Effective Dates Status Health Status Informan t Allergic contact Active dermatitis(Confirmed ) Benign essential Active hypertension(Confirm ed) CPAP (continuous Active positive airway pressure) dependence(Confirmed ) Electrocardiogram 01/16/15 Active abnormal1 History of colonic Active polyps(Confirmed) Impaired fasting Active glucose(Confirmed) Lumbago(Confirmed) Active Mixed Active hyperlipidemia(Confi rmed) Morbid Active obesity(Confirmed) Obstructive sleep Active apnea(Confirmed) Annual physical Active exam(Confirmed) Peripheral 01/16/15 Active edema(Confirmed)2 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 2Data migrated from [facility] on 01/22/15. Allergies, Adverse Reactions, Alerts Substance Reaction Severity Status NKDA Active Medications amlodipine/hydrochlorothiazide/valsartan 10 mg-25 mg-320 mg oral tablet 1 tab, PO, Daily, # 90 tab, 1 Refill(s), Pharmacy: [facility], Discontinue Tribenzor HCT Start Date: 11/02/17 Status: Ordered cloNIDine 0.1 mg oral tablet 0.1 mg = 1 tab, PO, BID, # 180 tab, 1 Refill(s), Pharmacy: [facility] Start Date: 11/02/17 Status: Ordered Results No data available for this section Immunizations Given and Recorded Vaccine Date Status Refusal Reason influenza virus vaccine, inactivated1 04/12/17 Given influenza virus vaccine, inactivated 04/08/16 G iven pneumococcal 23-valent vaccine 07/23/13 Recorde d 1Result Comment: Patient waited 15 min with no reaction. Procedures Procedure Date Related Diagnosis Body Site Status Glaucoma monitoring1 08/29/17 Completed Glaucoma monitoring2 05/17/17 Completed Comprehensive eye examination3 09/2016 Complet ed Colonoscopy4 2011 Completed Foot joint operations5 Completed Knee joint operation6 Completed 1open angle glaucoma and IOP is adequate, continue meds 2glaucoma, IOP adequate, f/u 3 mo 3primary open angle glaucoma of both eyes 4one polyp removed, repeat in 5 years 5due to work injury - 2013 6due to work injury - 2013 Social History Social History Type Response Substance Abuse Use: None. Exercise Exercise type: none. Employment/School Status: Retired. 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 Alcohol Current, Type Beer. Alcoho l use interferes with work or home: No. Drinks more than intended: No. Others hurt by drinking: No. Ready to change: No. Household alcohol concerns: No.1 Smoking Status Never smoker; Concerns abou t tobacco use in household: No; Exposure to Tobacco Smoke None; Cigarette Smoking L ast 365 Days No; Reg Smoking Cessation Counseling No entered on: 08/23/17 1On Occasion Assessment and Plan No data available for this section
--- OUTSIDE RECORDS SUMMARY | 2020-02-15 20:35 | XMS REPORT | Summary of Care ---
Author Author [facility] Organization [facility] Address Unknown Phone Unavailable Encounter HQ Renard(FIN) [id number] Date(s): 04/04/18 - 04/04/18 [facility] [address] [facility] [address] [place] [address]- Discharge Disposition: Home or Self Care Attending Physician: Yesi Baxter MD Vital Signs Most recent to 1 oldest [Reference Range]: Height 172.72 cm (04/04/18 9:09 AM) Temperature Oral 97 DegF [96.4-99.1 DegF] (04/04/18 9:09 AM) Blood Pressure 141/85 mmHg [90-140/60-90 mmHg] *HI* (04/04/18 9:09 AM) Respiratory Rate 16 BRMIN [14-20 BRMIN] (04/04/18 9:09 AM) Peripheral Pulse 61 bpm Rate [60-100 bpm] (04/04/18 9:09 AM) Weight 123.295 kg (04/04/18 9:09 AM) Body Mass Index 41.33 m2 (04/04/18 9:09 AM) Problem List Condition Effective Dates Status [...] both lower extremities(Confirme d) 1Data migrated from [employer] on 01/22/15. 2Data migrated from [employer] on 01/22/15. Allergies, Adverse Reactions, Alerts Substance Reaction Severity Status NKDA Active Medications amlodipine/hydrochlorothiazide/olmesartan 10 mg-25 mg-40 mg oral tablet 1 tab, PO, Daily, X 90 day, # 90 tab, 1 Refill(s), [facility], Stop amlodipine/HCTZ/valsartan Start Date: 04/05/18 Stop Date: 08/07/18 Status: Completed Results No data available for this section [...] monitoring2 02/15/18 Completed Glaucoma monitoring3 11/21/17 Completed Glaucoma monitoring4 08/29/17 Completed Glaucoma monitoring5 05/17/17 Completed Influenza vaccination 04/12/17 Completed Comprehensive eye examination6 09/2016 Complet ed Pneumococcal vaccination7 07/23/13 Completed Colonoscopy8 2011 Completed Foot joint operations9 Completed Knee joint [id number] Completed 1single sessile 5 mm polyp of benign appearance s/p polypectomy, int hemorrhoids, repeat 3 years 2IOP adequate, continue current eye drops, 3open angle glaucoma, IOP adequate, f/u 3 mo 4open angle glaucoma and IOP is adequate, continue meds 5glaucoma, IOP adequate, f/u 3 mo 6primary open angle glaucoma of both eyes 7Pneumovax 8one polyp removed, repeat in 5 years 9due to work injury - 2013 10due to work injury - 2013 Social History Social History Type Response Substance Abuse Use: None. Exercise Exercise type: none. Employment/School Status: Retired. 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 Alcohol Current, Type Beer. Alcoho l use interferes with work or home: No. Drinks more than intended: No. Others hurt by drinking: No. Ready to change: No. Household alcohol concerns: No.1 Smoking Status Never smoker; Concerns abou t tobacco use in household: No; Exposure to Tobacco Smoke None; Cigarette Smoking L ast 365 Days No; Reg Smoking Cessation Counseling No entered on: 08/04/18 1On Occasion Assessment and Plan No data available for this section
--- OUTSIDE RECORDS SUMMARY | 2020-02-15 20:35 | XMS REPORT | Summary of Care ---
Author Author [facility] Organization [facility] Address Unknown Phone Unavailable Encounter MICHELLE Glynn(FIN) [id number] Date(s): 04/03/19 - 04/03/19 [facility] [address] [facility] [address] [place] [address]- Attending Physician: Yesi Baxter MD Vital Signs No data available for this section Problem List Condition Effective Dates Status Health Status Informan t Allergic contact Active dermatitis(Confirmed ) Benign essential Active hypertension(Confirm ed) Body mass index Active 38.0-38.9, adult(Confirmed) CPAP (continuous Active positive airway pressure) dependence(Confirmed ) Electrocardiogram 01/16/15 Active abnormal1 History of colonic Active polyps(Confirmed) Impaired fasting Active glucose(Confirmed) Elevated Active hemoglobin(Confirmed ) Lumbago(Confirmed) Active Mixed Active hyperlipidemia(Confi rmed) Decreased strength Active of lower extremity(Confirmed) Nocturia(Confirmed) Active Obesity(Confirmed) Active Obstructive sleep Active apnea(Confirmed) Lower extremity Active pain, left(Confirmed) Peripheral 01/16/15 Active edema(Confirmed)2 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 2Data migrated from [facility] on 01/22/15. Allergies, Adverse Reactions, Alerts Substance Reaction Severity Status NKFA Active amLODIPine leg edema Active Medications No data available for this [...] 2013 Social History Social History Type Response Alcohol Current, Type Beer. Alcoho l use interferes with work or home: No. Drinks more than intended: No. Others hurt by drinking: No. Ready to change: No. Household alcohol concerns: No.1 Employment/School Status: Retired. 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 Exercise Exercise type: none. Substance Abuse Use: None. Smoking Status Never smoker; Concerns abou t tobacco use in household: No; Exposure to Tobacco Smoke None; Cigarette Smoking L ast 365 Days No; Reg Smoking Cessation Counseling No entered on: 03/09/19 1On Occasion Assessment and Plan No data available for this section
--- OUTSIDE RECORDS SUMMARY | 2020-02-15 20:35 | XMS REPORT | Summary of Care ---
Author Author [facility] enter Organization [facility] enter Address Unknown Phone Unavailable Encounter MICHELLE Glynn(FIN) [id number] Date(s): 04/03/19 - 04/03/[address] [address]- Attending Physician: Yesi Baxter MD Vital Signs [...] lower extremities(Confirme d) 1Data migrated from [employer] on 01/22/15. 2Data migrated from [employer] on 01/22/15. Allergies, Adverse Reactions, Alerts Substance [...] No.1 Employment/School Status: Retired. 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 Exercise Exercise type: none. Substance Abuse Use: None. Smoking Status Never smoker; Concerns abou t tobacco use in household: No; Exposure to Tobacco Smoke None; Cigarette Smoking L ast 365 Days No; Reg Smoking Cessation Counseling No entered on: 03/09/19 1On Occasion Assessment and Plan No data available for this section
--- OUTSIDE RECORDS SUMMARY | 2020-02-15 20:35 | XMS REPORT | Summary of Care ---
Author Author [facility] Organization [facility] Address Unknown Phone Unavailable Encounter MICHELLE Glynn(INDU) [id number] Date(s): 06/19/19 - 06/19/19 [facility] [address] [place] [address]- Discharge Disposition: Home or Self Care Attending Physician: Tomi Hassan MD Vital Signs No data available for [...] both lower extremities(Confirme d) 1Data migrated from [employer] on 01/22/15. 2Data migrated from [employer] on 01/22/15. Allergies, Adverse Reactions, Alerts Substance [...] No.1 Employment/School Status: Retired. 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 Exercise Exercise type: none. Substance Abuse Use: None. Smoking Status Never smoker; Concerns abou t tobacco use in household: No; Exposure to Tobacco Smoke None; Cigarette Smoking L ast 365 Days No; Reg Smoking Cessation Counseling No entered on: 03/09/19 1On Occasion Assessment and Plan No data available for this section
--- OUTSIDE RECORDS SUMMARY | 2020-02-15 20:35 | XMS REPORT | Summary of Care ---
Author Author [facility] Organization [facility] Address Unknown Phone Unavailable Encounter HQ Renard(FIN) [id number] Date(s): 06/05/18 - 06/05/18 [facility] [address] [facility] [address] [place] [address]- Discharge Disposition: Home or Self Care Attending Physician: Yesi Baxter MD Vital Signs Most recent to 1 oldest [Reference Range]: Height 177.8 cm (06/05/18 11:44 AM) Temperature Oral 98.1 DegF [96.4-99.1 DegF] (06/05/18 11:44 AM) Blood Pressure 174/100 mmHg [90-140/60-90 mmHg] *HI* (06/05/18 11:44 AM) Respiratory Rate 14 BRMIN [14-20 BRMIN] (06/05/18 11:44 AM) Peripheral Pulse 74 bpm Rate [60-100 bpm] (06/05/18 11:44 AM) Weight 123.352 kg (06/05/18 11:44 AM) Body Mass Index 39.02 m2 (06/05/18 11:44 AM) Problem List Condition Effective Dates Status [...] lower extremities(Confirme d) 1Data migrated from [employer] on 01/22/15. 2Data migrated from [employer] on 01/22/15. Allergies, Adverse Reactions, Alerts No Known Medication Allergies Medications No Known Medications Results No data [...] none. Employment/School Status: Retired. 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 Alcohol Current, Type Beer. Alcoho l use interferes with work or home: No. Drinks more than intended: No. Others hurt by drinking: No. Ready to change: No. Household alcohol concerns: No.1 Smoking Status Never smoker; Concerns abou t tobacco use in household: No; Exposure to Tobacco Smoke None; Cigarette Smoking L ast 365 Days No; Reg Smoking Cessation Counseling No entered on: 12/01/18 1On Occasion Assessment and Plan No data available for this section
--- OUTSIDE RECORDS SUMMARY | 2020-02-15 20:35 | XMS REPORT | Continuity of Care Document ---
Author Author [facility] Organization [facility] Address Unknown Phone Unavailable Care Team Providers Care Chaperone Name Role Phone MD Vee, Yesi HARRIS Unavailable Insurance Providers Payer name Policy type / Coverage type Policy ID Covered democrat ID Policy Ha[facility] Encounters Encounter Performer Location Date Lab Report Yesi Baxter MD [facility] Jan 16, 2015 Problems Problem Effective Dates Problem Status ROUTINE GENERAL MEDICAL EXAMINATION AT A [facility] CARE [facility] Jan 16, 2015 Active PROSTATE NEOPLASM SCREENING Jan 16, 2015 Active SCREENING FOR MALIGNANT NEOPLASM, COLON Jan 16, 2015 Active BENIGN ESSENTIAL HYPERTENSION Jan 16, 2015 Active PERIPHERAL EDEMA Jan 16, 2015 Active ABNORMAL EKG Jan 16, 2015 Active SCREENING FOR GLAUCOMA Jan 16, 2015 Active Procedures Date Description Comments Jan 16, 2015 smoking status Never smoker Medications Medication Instructions Start Date Status METOPROLOL SUCCINATE ER 50 MG [id number] Take one tablet by m outh daily. Jan 16, 2015 Active TRIBENZOR 40-10-25 MG TABS Take one tablet by mouth daily. Jan Active CLONIDINE HCL 0.1 MG TABS Take one tablet by mouth twice daily. Jan 16, 2015 Active ECOTRIN LOW STRENGTH 81 MG TBEC Take one tablet by mouth daily. Jan 16, 2015 Active LATANOPROST 0.005 % SOLN instill 1 drop into both eyes at bedtim e Jan 16, 2015 Active VITAMIN E CAPS Take one capsule by mouth daily. Jan 16, 2015 Active VITAMIN D TABS Take one tablet by mouth daily. Jan 16, 2015 Active VITAMIN B COMPLEX TABS Take one tablet by mouth daily. Jan 16 015 Active JOBST FOR MEN 15-20MMHG LG MISC Use during waking hours and remove at bedtime. Jan 16, 2015 Active Vital Signs Date Description Test Result Jan 16, 2015 weight E&M - 3141-9 WEIGHT 276 lb Jan 16, 2015 height E&M - 8302-2 HEIGHT 70 in Jan 16, 2015 temperature E&M TEMPERATURE 97.9 deg f Jan 16, 2015 respiratory rate E&M - 9279-1 RESP RATE 12 /min Jan 16, 2015 blood pressure, systolic - 8480-6 BP SYSTOLIC 157 mm Hg Jan 16, 2015 blood pressure, diastolic - 8462-4 BP DIASTOLIC 86 mm Hg Jan 16, 2015 pulse rate E&M - 8867-4 PULSE RATE 66 /min Results Date Description Test Name Value Reference Interpretation Sta tus Jan 16, 2015 hemoglobin, blood HGB 17.0 g/dL 14.0-18.0 Jan 16, 2015 hematocrit, blood HCT 51.5 % 42.0-54.0 Jan 16, 2015 platelet count PLATELETS 206 K/CMM /mm3 133-450 Jan 16, 2015 thyroid stimulating hormone, serum TSH 3.310 uIU/mL 0.360-3.740 Jan 16, 2015 cholesterol, serum CHOLESTEROL 195 mg/dl <=199 Jan 16, 2015 triglyceride, serum, fasting TRIGLYCERIDE 163 mg/dl <=149 High Jan 16, 2015 HDL cholesterol, serum HDL 37 mg/dl >=61 Low Jan 16, 2015 LDL cholesterol, serum LDL 125 mg/dl <=99 High Jan 16, 2015 sodium, serum SODIUM 140 MEQ/L mmol/L 135-145 Jan 16, 2015 potassium, serum POTASSIUM 3.8 MEQ/L mmol/L 3.5-5.1 Jan 16, 2015 creatinine, serum CREATININE 1.0 mg/dL 0.5-1.4 Jan 16, 2015 urea nitrogen, blood BUN 13 mg/dL 7-22 Jan 16, 2015 urea nitrogen/creatinine ratio, serum BUN/CREAT 13 null 6-25 Jan 16, 2015 albumin, serum ALBUMIN 3.8 g/dL 3.5-5.0 Jan 16, 2015 calcium, serum CALCIUM 10.2 mg/dL 8.5-10.5 Jan 16, 2015 alanine aminotransferase (SGPT), serum SGPT (ALT) 44 U/L 0-65 Jan 16, 2015 aspartate aminotransferase (SGOT), serum SGOT (AST) 27 U/ L 0-37 Jan 16, 2015 alkaline phosphatase, serum ALK PHOS 65 U/L 39-136 Jan 16, 2015 prostate specific antigen PSA 0.37 ng/mL 0.00-4.00
--- OUTSIDE RECORDS SUMMARY | 2020-02-15 20:35 | XMS REPORT | Continuity of Care Document ---
Author Author [facility] Organization [facility] Address Unknown Phone Unavailable Care Team Providers Care Information Writer Name Role Phone MD Vee, Yesi HARRIS Unavailable Insurance Providers Payer name Policy type / Coverage type Policy ID Covered constitution party ID Policy Haas [facility] Encounters Encounter Performer Location Date Lab Report Yesi Baxter MD [facility] Jan 22, 2015 Problems Problem Effective Dates Problem Status ROUTINE GENERAL MEDICAL EXAMINATION AT A [facility] Jan 16, 2015 Active PROSTATE NEOPLASM [...] Date Status METOPROLOL SUCCINATE ER 50 MG [id number] Take one tablet by m outh daily. [...] 2015 urea nitrogen, blood BUN 13 mg/dL 7-Jan 16, 2015 urea nitrogen/creatinine ratio, serum BUN/CREAT 13 null 6-Jan 16, 2015 albumin, serum ALBUMIN 3.8 g/dL 3.5-5.0 Jan 16, 2015 calcium, serum CALCIUM 10.2 mg/dL 8.5-10.5 Jan 16, 2015 alanine aminotransferase (SGPT), serum SGPT (ALT) 44 U/L 0-65 Jan 16, 2015 aspartate aminotransferase (SGOT), serum SGOT (AST) 27 U/ L 0-37 Jan 16, 2015 alkaline phosphatase, serum ALK PHOS 65 U/L 39-136 Jan 16, 2015 prostate specific antigen PSA 0.37 ng/mL 0.00-4.00 Jan 20, 2015 occult blood, stool (E&M) HEMOCCULT Negative null Negativ e Jan 21, 2015 occult blood, stool (E&M) HEMOCCULT Negative null Negativ e Jan 22, 2015 occult blood, stool (E&M) HEMOCCULT Negative null Negativ e
--- OUTSIDE RECORDS SUMMARY | 2020-02-15 20:36 | XMS REPORT | Summary of Care ---
Author Author [facility] Organization [facility] Address Unknown Phone Unavailable Encounter MICHELLE Glynn(FIN) [id number] Date(s): 11/03/18 - 11/04/18 [facility] [address] [facility] [address] [place] [address]- Vital Signs No data available for this [...] both lower extremities(Confirme d) 1Data migrated from [employer] on 01/22/15. 2Data migrated from [employer] on 01/22/15. Allergies, Adverse Reactions, Alerts Substance Reaction Severity Status NKDA Active Medications cloNIDine 0.1 mg oral tablet = 1 tab, PO, BID, # 180 tab, Refill(s) 1, [facility] Start Date: 11/03/18 Status: Ordered Results No data available for [...] Completed Foot joint operations9 Completed Knee joint [id number] Completed 1single sessile 5 mm polyp of [...] none. Employment/School Status: Retired. 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 Alcohol Current, Type Beer. Alcoho l use [...]
--- OUTSIDE RECORDS SUMMARY | 2020-02-15 20:36 | XMS REPORT | Summary of Care ---
Author Author [facility] Organization [facility] Address Unknown Phone Unavailable Encounter MICHELLE Glynn(FIN) [id number] Date(s): 12/02/17 - 12/02/17 [facility] [address], [address] [place] [address]- [phone] Discharge Disposition: Home or Self Care Attending Physician: Yesi Baxter MD Vital Signs Most recent to 1 oldest [Reference Range]: Height 177.8 cm (12/02/17 8:35 AM) Temperature Oral 97.4 DegF [96.4-99.1 DegF] (12/02/17 8:35 AM) Blood Pressure 129/84 mmHg [90-140/60-90 mmHg] (12/02/17 8:35 AM) Respiratory Rate 14 BRMIN [14-20 BRMIN] (12/02/17 8:35 AM) Peripheral Pulse 77 bpm Rate [60-100 bpm] (12/02/17 8:35 AM) Weight 127.045 kg (12/02/17 8:35 AM) Body Mass Index 40.19 m2 (12/02/17 8:35 AM) Problem List Condition Effective Dates Status Health Status Informan t Allergic contact Active dermatitis(Confirmed ) Benign essential Active hypertension(Confirm ed) CPAP (continuous Active positive airway pressure) dependence(Confirmed ) Electrocardiogram 01/16/15 Active abnormal1 History of colonic Active polyps(Confirmed) Impaired fasting Active glucose(Confirmed) Lumbago(Confirmed) Active Mixed Active hyperlipidemia(Confi rmed) Morbid Active obesity(Confirmed) Decreased strength Active of lower extremity(Confirmed) Obstructive sleep Active apnea(Confirmed) Annual physical Active exam(Confirmed) Peripheral 01/16/15 Active edema(Confirmed)2 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 2Data migrated from [employer] on 01/22/15. Allergies, Adverse Reactions, Alerts Substance Reaction Severity Status NKDA Active Medications No Known Medications Results No [...] none. Employment/School Status: Retired. 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 Alcohol Current, Type Beer. Alcoho l use interferes with work or home: No. Drinks more than intended: No. Others hurt by drinking: No. Ready to change: No. Household alcohol concerns: No.1 Smoking Status Never smoker; Concerns abou t tobacco use in household: No; Exposure to Tobacco Smoke None; Cigarette Smoking L ast 365 Days No; Reg Smoking Cessation Counseling No entered on: 12/02/17 1On Occasion Assessment and Plan No data available for this section
--- OUTSIDE RECORDS SUMMARY | 2020-02-15 20:36 | XMS REPORT | Summary of Care ---
Author Author [facility] Organization [facility] Address Unknown Phone Unavailable Encounter HQ Renard(FIN) [id number] Date(s): 08/23/17 - 08/23/17 [facility] [address], [address] [place], [place] [address]- [phone] Discharge Disposition: Home or Self Care Attending Physician: Yesi Baxter MD Vital Signs Most recent to 1 oldest [Reference Range]: Height 177.8 cm (08/23/17 9:15 AM) Temperature Oral 97.6 DegF [96.4-99.1 DegF] (08/23/17 9:15 AM) Blood Pressure 150/83 mmHg [90-140/60-90 mmHg] *HI* (08/23/17 9:15 AM) Respiratory Rate 16 BRMIN [14-20 BRMIN] (08/23/17 9:15 AM) Peripheral Pulse 63 bpm Rate [60-100 bpm] (08/23/17 9:15 AM) Weight 127.727 kg (08/23/17 9:15 AM) Body Mass Index 40.4 m2 (08/23/17 9:15 AM) Problem List Condition Effective Dates Status [...] both lower extremities(Confirme d) 1Data migrated from [employer] on 01/22/15. 2Data migrated from [employer] on 01/22/15. Allergies, Adverse Reactions, Alerts Substance Reaction Severity Status NKDA Active Medications hydrocortisone butyrate topical 0.1% ointment 1 appl, TOP, Daily, PRN skin irritation, # 15 gm, 0 Refill(s), [id number] Start Date: 08/23/17 Stop Date: 08/23/18 Status: Ordered Results No data available for [...] none. Employment/School Status: Retired. 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 Alcohol Current, Type Beer. Alcoho l use [...]
--- OUTSIDE RECORDS SUMMARY | 2020-02-15 20:36 | XMS REPORT | Summary of Care ---
Author Author [facility] enter Organization [facility] enter Address Unknown Phone Unavailable Encounter MICHELLE Glynn(FIN) [id number] Date(s): 03/21/19 - 03/22/[address] [address]- [phone] Vital Signs No data available for this [...] both lower extremities(Confirme d) 1Data migrated from [employer] on 01/22/15. 2Data migrated from [employer] on 01/22/15. Allergies, Adverse Reactions, Alerts Substance [...] No.1 Employment/School Status: Retired. 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 Exercise Exercise type: none. Substance Abuse Use: None. Smoking Status Never smoker; Concerns abou t tobacco use in household: No; Exposure to Tobacco Smoke None; Cigarette Smoking L ast 365 Days No; Reg Smoking Cessation Counseling No entered on: 03/09/19 1On Occasion Assessment and Plan No data available for this section
--- OUTSIDE RECORDS SUMMARY | 2020-02-15 20:36 | XMS REPORT | Summary of Care ---
Author Author [facility] Organization [facility] Address Unknown Phone Unavailable Encounter HQ Renard(FIN) [id number] Date(s): 01/23/19 - 01/24/19 [facility] [address] [address] [place] [address]- Vital Signs No data available for this [...] both lower extremities(Confirme d) 1Data migrated from [address] on 01/22/15. 2Data migrated from [address] on 01/22/15. Allergies, Adverse Reactions, Alerts No Known Medication Allergies Substance Reaction Severity Status NKFA Active Medications NIFEdipine 60 mg oral tablet, extended release 60 mg = 1 tab, PO, Daily, # 90 tab, 0 Refill(s), Pharmacy: [id number] Start Date: 01/24/19 Stop Date: 04/24/19 Status: Ordered Results No data available for [...] monitoring3 11/21/17 Completed Comprehensive eye examination4 09/2016 [facility] ed Pneumococcal vaccination5 07/23/13 Completed Colonoscopy6 2011 [...] none. Employment/School Status: Retired. 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 Alcohol Current, Type Beer. Alcoho l use [...]
--- OUTSIDE RECORDS SUMMARY | 2020-02-15 20:36 | XMS REPORT | Summary of Care ---
Author Author [facility] Organization [facility] Address Unknown Phone Unavailable Encounter MICHELLE Glynn(INDU) [id number] Date(s): 08/01/19 - 08/01/19 [facility] [address] [place] [address]- Discharge Disposition: Home or Self Care Attending Physician: Tomi Hassan MD Referring Physician: Tomi Hassan MD Vital Signs No [...] both lower extremities(Confirme d) 1Data migrated from [employer] on 01/22/15. 2Data migrated from [employer] on 01/22/15. Allergies, Adverse Reactions, Alerts Substance [...] No.1 Employment/School Status: Retired. 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 Substance Abuse Use: None. Smoking Status Never smoker; Concerns abou t tobacco use in household: No; Exposure to Tobacco Smoke None; Cigarette Smoking L ast 365 Days No; Reg Smoking Cessation Counseling No entered on: 03/09/19 1On Occasion Assessment and Plan No data available for this section
--- OUTSIDE RECORDS SUMMARY | 2020-02-15 20:36 | XMS REPORT | Summary of Care ---
Author Author [facility] Organization [facility] Address Unknown Phone Unavailable Encounter MICHELLE Glynn(FIN) [id number] Date(s): 06/19/18 - 06/19/18 [facility] [address] [facility] [address] [place] [address]- [phone] Discharge Disposition: Home or Self Care Attending Physician: Yesi Baxter MD Vital Signs Most recent to 1 oldest [Reference Range]: Height 177.8 cm (06/19/18 11:46 AM) Temperature Oral 98.9 DegF [96.4-99.1 DegF] (06/19/18 11:46 AM) Blood Pressure 141/83 mmHg [90-140/60-90 mmHg] *HI* (06/19/18 11:46 AM) Respiratory Rate 16 BRMIN [14-20 BRMIN] (06/19/18 11:46 AM) Peripheral Pulse 64 bpm Rate [60-100 bpm] (06/19/18 11:46 AM) Weight 120.455 kg (06/19/18 11:46 AM) Body Mass Index 38.1 m2 (06/19/18 11:46 AM) Problem List Condition Effective Dates Status [...] Reactions, Alerts No Known Medication Allergies Medications Azithromycin 5 Day Dose Pack 250 mg oral tablet See Instructions, Take 2 tablets by mouth the first day then 1 tablet by mouth d ays 2-5., X 5 day, # 6 tab, 0 Refill(s), Pharmacy: [id number] Start Date: 06/19/18 Stop Date: 06/24/18 Status: Completed baclofen 10 mg oral tablet 10 mg = 1 tab, PO, BID, PRN Spasms, # 40 tab, 0 Refill(s), Pharm[id number] Start Date: 06/19/18 Status: Ordered diclofenac sodium 75 mg oral enteric coated, delayed-release tablet 75 mg = 1 tab, PO, BID, PRN Pain, # 40 tab, 0 Refill(s), Pharmacy: [facility] #[id number] Start Date: 06/19/18 Status: Ordered Results No data available for [...] none. Employment/School Status: Retired. 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 Alcohol Current, Type Beer. Alcoho l use [...]
--- OUTSIDE RECORDS SUMMARY | 2020-02-15 20:36 | XMS REPORT | Summary of Care ---
Author Author [facility] Organization [facility] Address Unknown Phone Unavailable Encounter MICHELLE Glynn(INDU) [id number] Date(s): 03/16/19 - 03/16/19 [facility] [address] [place] [address]- [phone] Discharge Disposition: Home or Self Care Attending [...] lower extremities(Confirme d) 1Data migrated from [employer] on 01/22/15. 2Data migrated from [employer] on 01/22/15. Allergies, Adverse Reactions, Alerts Substance [...] monitoring3 11/21/17 Completed Comprehensive eye examination4 09/2016 [facility] ed Pneumococcal vaccination5 07/23/13 Completed Colonoscopy6 2011 [...] No.1 Employment/School Status: Retired. 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 Substance Abuse Use: None. Smoking Status Never smoker; Concerns abou t tobacco use in household: No; Exposure to Tobacco Smoke None; Cigarette Smoking L ast 365 Days No; Reg Smoking Cessation Counseling No entered on: 03/09/19 1On Occasion Assessment and Plan No data available for this section
--- OUTSIDE RECORDS SUMMARY | 2020-02-15 20:36 | XMS REPORT | Summary of Care ---
Author Author [facility] Organization [facility] Address Unknown Phone Unavailable Encounter MICHELLE Glynn(FIN) [id number] Date(s): 12/01/18 - 12/01/18 [facility] [address] [facility] [address] [place] [address]- [phone] Discharge Disposition: Home or Self Care Attending Physician: Yesi Baxter MD Vital Signs Most recent to 1 oldest [Reference Range]: Height 177.8 cm (12/01/18 10:55 AM) Temperature Oral 96.8 DegF [96.4-99.1 DegF] (12/01/18 10:55 AM) Blood Pressure 141/80 mmHg [90-140/60-90 mmHg] *HI* (12/01/18 10:55 AM) Respiratory Rate 16 BRMIN [14-20 BRMIN] (12/01/18 10:55 AM) Peripheral Pulse 62 bpm Rate [60-100 bpm] (12/01/18 10:55 AM) Weight 124.091 kg (12/01/18 10:55 AM) Body Mass Index 39.25 m2 (12/01/18 10:55 AM) Problem List Condition Effective Dates Status [...] both lower extremities(Confirme d) 1Data migrated from [employer] on 01/22/15. 2Data migrated from [employer] on 01/22/15. Allergies, Adverse Reactions, Alerts No Known Medication Allergies Medications cloNIDine 0.2 mg oral tablet 0.2 mg = 1 tab, PO, BID, # 180 tab, 1 Refill(s), Pharmacy: [facility] Start Date: 12/01/18 Status: Ordered hydrochlorothiazide-olmesartan 25 mg-40 mg oral tablet 1 tab, PO, Daily, # 90 tab, 1 Refill(s), Pharmacy: [facility] amlodipine/olmesartan/HCTZ Start Date: 12/01/18 Stop Date: 05/30/19 Status: Ordered Results No data available for [...] Completed Foot joint operations9 Completed Knee joint [id number] Completed 1single sessile 5 mm polyp of [...] none. Employment/School Status: Retired. 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 Alcohol Current, Type Beer. Alcoho l use [...]
--- OUTSIDE RECORDS SUMMARY | 2020-02-15 20:36 | XMS REPORT | Summary of Care ---
Author Author [facility] Organization [facility] Address Unknown Phone Unavailable Encounter MICHELLE Glynn(FIN) [id number] Date(s): 10/07/17 - 10/08/17 [facility] [address], [address] [place] [address] [phone] Vital Signs No data available for this [...] both lower extremities(Confirme d) 1Data migrated from [employer] on 01/22/15. 2Data migrated from [employer] on 01/22/15. Allergies, Adverse Reactions, Alerts Substance Reaction Severity Status NKDA Active Medications Metoprolol Succinate ER 50 mg oral tablet, extended release 50 mg = 1 tab, PO, Daily, # 90 tab, 1 Refill(s), Pharmacy: [facility] Start Date: 10/07/17 Stop Date: 10/08/17 Status: Completed Results No data available for this section Immunizations Given and Recorded Vaccine Date Status Refusal Reason influenza virus vaccine, inactivated1 04/12/17 Given influenza virus vaccine, inactivated 04/08/16 G iven pneumococcal 23-valent vaccine 07/23/13 Recorde d 1Result Comment: Patient waited 15 min with no reaction. Procedures Procedure Date Related Diagnosis Body Site Status Glaucoma monitoring1 11/21/17 Completed Glaucoma monitoring2 08/29/17 Completed Glaucoma monitoring3 05/17/17 Completed Influenza vaccination 04/12/17 Completed Comprehensive eye examination4 09/2016 Complet ed Pneumococcal vaccination5 07/23/13 Completed Colonoscopy6 2011 Completed Foot joint operations7 Completed Knee joint operation8 Completed 1open angle glaucoma, IOP adequate, f/u 3 mo 2open angle glaucoma and IOP is adequate, continue meds 3glaucoma, IOP adequate, f/u 3 mo 4primary open angle glaucoma of both eyes 5Pneumovax 6one polyp removed, repeat in 5 years 7due to work injury - 2013 8due to work injury - 2013 Social History Social History Type Response Substance Abuse Use: None. Exercise Exercise type: none. Employment/School Status: Retired. 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 Alcohol Current, Type Beer. Alcoho l use [...]
--- OUTSIDE RECORDS SUMMARY | 2020-02-15 20:36 | XMS REPORT | Summary of Care ---
Author Author [facility] Organization [facility] Address Unknown Phone Unavailable Encounter MICHELLE Glynn(FIN) [id number] Date(s): 08/07/18 - 08/08/18 [facility] [address], [address] [place], [place] [id number]- [phone] Vital Signs No data available for this [...] both lower extremities(Confirme d) 1Data migrated from [employer] on 01/22/15. 2Data migrated from [employer] on 01/22/15. Allergies, Adverse Reactions, Alerts Substance Reaction Severity Status NKDA Active Medications amlodipine/hydrochlorothiazide/olmesartan 10 mg-25 mg-40 mg oral tablet 1 tab, PO, Daily, # 90 tab, 1 Refill(s), Pharmacy: [facility] Krupa johnson, Stop amlodipine/HCTZ/valsartan Start Date: 08/07/18 Stop Date: 02/03/19 Status: Ordered Metoprolol Succinate ER 50 mg oral tablet, extended release 50 mg = 1 tab, PO, Daily, # 90 tab, 1 Refill(s), Pharmacy: [facility] Start Date: 08/07/18 Status: Ordered Results No data available for [...] vaccination 04/12/17 Completed Comprehensive eye examination6 09/2016 [facility] ed Pneumococcal vaccination7 07/23/13 Completed Colonoscopy8 2011 Completed Foot joint operations9 Completed Knee joint [id number] Completed 1single sessile 5 mm polyp of [...] none. Employment/School Status: Retired. 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 Alcohol Current, Type Beer. Alcoho l use [...]
--- OUTSIDE RECORDS SUMMARY | 2020-02-15 20:36 | XMS REPORT | Summary of Care ---
Author Author [facility] Organization [facility] Address Unknown Phone Unavailable Encounter HQ Renard(FIN) [id number] Date(s): 08/23/17 - 08/23/17 [facility] [address], [address] [place], [place] [id number]- [phone] Discharge Disposition: Home or Self Care Attending [...] both lower extremities(Confirme d) 1Data migrated from [employer] on 01/22/15. 2Data migrated from [employer] on 01/22/15. Allergies, Adverse Reactions, Alerts Substance [...] none. Employment/School Status: Retired. 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 Alcohol Current, Type Beer. Alcoho l use [...]
--- OUTSIDE RECORDS SUMMARY | 2020-02-15 20:36 | XMS REPORT | Summary of Care ---
Author Author [facility] Organization [facility] Address Unknown Phone Unavailable Encounter MICHELLE Glynn(FIN) [id number] Date(s): 03/09/19 - 03/09/19 [facility] [address] [place] [address]- Discharge Disposition: Home or Self Care Attending Physician: Yesi Baxter MD Vital Signs Most recent to 1 oldest [Reference Range]: Height 177.8 cm (03/09/19 10:42 AM) Temperature Oral 97.2 DegF [96.4-99.1 DegF] (03/09/19 10:42 AM) Blood Pressure 136/88 mmHg [90-140/60-90 mmHg] (03/09/19 10:42 AM) Respiratory Rate 16 BRMIN [14-20 BRMIN] (03/09/19 10:42 AM) Peripheral Pulse 80 bpm Rate [60-100 bpm] (03/09/19 10:42 AM) Weight 122.841 kg (03/09/19 10:42 AM) Body Mass Index 38.86 m2 (03/09/19 10:42 AM) Problem List Condition Effective Dates Status [...] both lower extremities(Confirme d) 1Data migrated from [employer] on 01/22/15. 2Data migrated from [employer] on 01/22/15. Allergies, Adverse Reactions, Alerts Substance [...] No.1 Employment/School Status: Retired. 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 Substance Abuse Use: None. Smoking Status Never smoker; Concerns abou t tobacco use in household: No; Exposure to Tobacco Smoke None; Cigarette Smoking L ast 365 Days No; Reg Smoking Cessation Counseling No entered on: 8/23/19 1On Occasion Assessment and Plan No data available for this section
--- OUTSIDE RECORDS SUMMARY | 2020-02-15 20:36 | XMS REPORT | Summary of Care ---
Author Author [facility] Organization [facility] Address Unknown Phone Unavailable Encounter HQ Renard(FIN) [id number] Date(s): 01/31/19 - 01/31/19 [facility] [address] [place] [address]- Discharge Disposition: Home or Self Care Attending Physician: Yesi Baxter MD Vital Signs Most recent to 1 oldest [Reference Range]: Height 177.8 cm (01/31/19 7:59 AM) Temperature Oral 97.1 DegF [96.4-99.1 DegF] (01/31/19 7:59 AM) Blood Pressure 144/84 mmHg [90-140/60-90 mmHg] *HI* (01/31/19 7:59 AM) Respiratory Rate 16 BRMIN [14-20 BRMIN] (01/31/19 7:59 AM) Peripheral Pulse 79 bpm Rate [60-100 bpm] (01/31/19 7:59 AM) Weight 122.386 kg (01/31/19 7:59 AM) Body Mass Index 38.71 m2 (01/31/19 7:59 AM) Problem List Condition Effective Dates Status [...] lower extremities(Confirme d) 1Data migrated from [employer] on 01/22/15. 2Data migrated from [employer] on 01/22/15. Allergies, Adverse Reactions, Alerts Substance [...] none. Employment/School Status: Retired. 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 Alcohol Current, Type Beer. Alcoho l use [...]
--- OUTSIDE RECORDS SUMMARY | 2020-02-15 20:36 | XMS REPORT | Continuity of Care Document ---
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 02 Active 05/24/2019 [facility] Active 2019-05-24 14:00:00 2019-06-19 09:43:00 Charu Khan M79.605/I73.9 M79. 605/I73.9 Active 03/13/2019 [facility] Active 2019-03-13 00:00:00 2019-03-16 09:06:00 [facility] DX: R60.9= / I87.2= / I73.9= ART. DOPP DX: R60.9= / I87.2= / I73.9= ART. DOPP Active 01/13/2017 [facility] Ac tive 2017-01-13 00:00:00 2017-01-19 14:12:00 [facility] ROUTINE GENERAL MEDICAL EXAMINATION AT A HEALTH CARE F ACILITY ROUTINE GENERAL MEDICAL EXAMINATION AT A HEALTH CARE FACILITY Active 01/16/2015 Condition 01/22/2015 [facility] Condition Active 2015-01-16 00:00:00 2015-01-22 10:03:00 [facility] PROSTATE NEOPLASM SCREENING [place] NEOPLASM SCREENING Active 01/16/2015 Condition 01/22/2015 [facility] Condition Active 2015-01-16 00:00:00 2015-01-22 10:03:00 [facility] SCREENING FOR MALIGNANT NEOPLASM, COLON SCREENING FOR MALIGNANT NEOPLASM, COLON Active 01/16/2015 Condition 01/22/2015 [facility] Condition Active 2015-01-16 00:00:00 2015-01-22 10:03:00 [facility] BENIGN ESSENTIAL HYPERTENSION BENIGN ESSENTIAL HYPERTENSION Active 01/16/2015 Condition 01/22/2015 [facility] Condition Active 2015-01-16 00:00:00 2015-01-22 10:03:00 [facility] PERIPHERAL EDEMA LIANET PHERAL EDEMA Active 01/16/2015 Condition 01/22/2015 [facility] Condition Active 2015-01-16 00:00:00 2015-01-22 10:03:00 [facility] ABNORMAL EKG ABNO RMAL EKG Active 01/16/2015 Condition 01/22/2015 [facility] Condition Active 2015-01-16 00:00:00 2015-01-22 10:03:00 [facility] SCREENING FOR GLAUCOMA SCRE ENING FOR GLAUCOMA Active 01/16/2015 Condition 01/22/2015 [facility] Condition Active 2015-01-16 00:00:00 2015-01-22 10:03:00 [facility] Abnormal ECG (finding) Abno rmal ECG (finding) Active 01/16/2015 Problem 08/04/2019 Data migrated from [employer] on 01/22/15. [facility] Problem Active 2015-01-16 00:00:00 2019-08-04 00:02:09 [facility] Peripheral edema (disorder) Pe ripheral edema (disorder) Active 01/16/2015 Problem 08/04/2019 Data migrated from [facility] on 01/22/15. 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 airway pressure vent ilation (finding) Dependence on continuous positive airway pressure ventilation (finding) Active Problem 08/04/2019 [facility] Problem Active 2019-08-04 00:02:09 [facility] History of polyp of colon (situation) History of polyp of colon (situation) Active Problem 08/04/2019 [facility] Problem Active 2019-08-04 00:02:09 [facility] 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) Active Problem 08/04/2019 [facility] Problem Active 2019-08-04 00:02:09 [facility] Low back pain (disorder) Low back pain (disorder) Active Problem 08/04/2019 [facility] Problem Active 2019-08-04 00:02:09 [facility] Mixed hyperlipidemia (disorder) Mixed hyperlipidemia (disorder) Active Problem 08/04/2019 [facility] Problem Active 2019-08-04 00:02:09 [facility] Obstructive sleep apnea syndrome (disorder) Obstructive sleep apnea syndrome (disorder) Active Problem 08/04/2019 [facility] Problem Active 2019-08-04 00:02:09 [facility] [place] Primary open angle glaucoma (disorder) Primary open angle glaucoma (disorder) Active Problem 08/04/2019 [facility] Problem Active 2019-08-04 00:02:09 [facility] Reducible umbilical hernia (disorder) Reducible umbilical hernia (disorder) Active Problem 08/04/2019 [facility] Problem Active 2019-08-04 00:02:09 Eliel Khan Screening status (finding) Scr eening status (finding) Active Problem 08/04/2019 [facility] Problem Active 2019-08-04 00:02:09 Charu Khan Thyroid function tests abnormal (finding) Thyroid function tests abnormal (finding) Active Problem 01/22/2017 [facility] Problem Active 2017-01-22 00:54:12 Michael Khan Vascular disorder of lower extremity (disorder) Vascular disorder of lower extremity (disorder) Active Problem 08/04/2019 [facility] Problem Active 2019-08-04 00:02:09 Charu Khan Venous insufficiency of leg (disorder) Venous insufficiency of leg (disorder) Active Problem 08/04/2019 [facility] Problem Active 2019-08-04 00:02:09 Eliel Khan Pain in right leg (finding) Pa in in right leg (finding) Active Problem 02/26/2019 [facility] Problem Active 2019-02-26 12:30:48 Charu Khan Allergic contact dermatitis (disorder) Allergic contact dermatitis (disorder) Active Problem 08/04/2019 [facility] Problem Active 2019-08-04 00:02:09 Charu Khan Body mass index 30+ - obesity (finding) Body mass index 30+ - obesity (finding) Active Problem 08/04/2019 [facility] Problem Active 2019-08-04 00:02:09 Charu Khan Increased hemoglobin (finding) Increased hemoglobin (finding) Active Problem 08/04/2019 [facility] Problem Active 2019-08-04 00:02:09 Charu Khan Muscle weakness of limb (finding) Muscle weakness of limb (finding) Active Problem 08/04/2019 [facility] Problem Active 2019-08-04 00:02:09 Michael Khan Nocturia (finding) Noct uria (finding) Active Problem 08/04/2019 [facility] Problem Active 00:02:09 Charu Khan Obesity (disorder) Obes ity (disorder) Active Problem 08/04/2019 [facility] Problem Active 00:02:09 Charu Khan Pain in left leg (finding) Angela n in left leg (finding) Active Problem 08/04/2019 [facility] Problem Active 2019-08-04 00:02:09 Charu Khan Subclinical hypothyroidism (disorder) Subclinical hypothyroidism (disorder) Active Problem 08/04/2019 [facility] Problem Active 2019-08-04 00:02:09 Charu Khan Vaccination required (finding) Vaccination required (finding) Active Problem 08/04/2019 [facility] Problem Active 2019-08-04 00:02:09 Charu Khan Morbid obesity (disorder) Morb id obesity (disorder) Active Problem 01/14/2018 [facility] Problem Active 2018-01-14 12:08:55 Charu Khan Patient encounter status (finding) Patient encounter status (finding) Active Problem 01/14/2018 [facility] Problem Active 2018-01-14 12:08:55 Michael Khan EDEMA, UNSPECIFIED APRIL A, UNSPECIFIED Active [facility] Diagnosis Active 2017-01-19 14:12:00 Me marcello Khan VENOUS INSUFFICIENCY (CHRONIC) (PERIPHER VENOUS INSUFFICIENCY (CHRONIC) (PERIPHER Active [facility] Diagnosis Active 2017-01-19 14:12:00 Charu Khan PERIPHERAL VASCULAR DISEASE, UNSPECIFIED PERIPHERAL VASCULAR DISEASE, UNSPECIFIED Active [facility] Diagnosis Active 2017-01-19 14:12:00 Charu Khan Allergies, Adverse Reactions, Alerts Allergy Name Allergy Type Status Severity Reaction(s) Onset Date Inacti ve Date Treating Clinician Comments Source No Known Allergies DA Active 2019-12-20 00:00:00 [facility] No Known Allergies DA Active 2019-12-18 00:00:00 [facility] No Known Allergies DA Active 2019-12-12 00:00:00 [facility] No Known Allergies DA Active 2019-12-11 00:00:00 [facility] NKFA NKFA Active [facility] desirae amLODIPine amLODIPine Active [facility] marcello Khan No Known Medication Allergies No Known Medication Allergies Active [facility] Social History Social Habit Start Date Stop Date Quantity Comments Source Social History 2018-06-05 17:46:31 2018-06-05 17:46:31 Charu Khan Medications Ordered Medication Name Filled Medication Name Start Date Stop Da te Current Medication? Ordering Clinician Indication Dosage Frequency Signature (SIG) Comments Components Source NIFEdipine 60 mg oral tablet, extended release 2019-02-19 03:27: 02 Yes 60 mg = 1 tab, PO, Daily, # 90 tab, 1 Refill(s), Pharmacy: [facility] Hydrochlorothiazide 25 MG / Olmesartan medoxomil 40 MG Oral Tablet 2019-02-19 03:26:57 Yes 1 tab, PO, Daily, # 90 tab, 1 Refill(s), Pharmacy: [facility], D/C amlodipine/olmesartan/HCTZ [facility] Metoprolol Succinate ER 50 mg oral tablet, extended release 2019-02-19 03:26:26 Yes = 1 tab, P O, Daily, # 90 tab, Refill(s) 1, Pharmacy: [facility] NIFEdipine 60 mg oral tablet, extended release 2019-01-24 11:30: 00 Yes 60 mg = 1 tab, PO, Daily, # 90 tab, 0 Re fill(s), Pharmacy: [facility]/pharmacy #[id number] [facility] Hydrochlorothiazide 25 MG / Olmesartan medoxomil 40 MG Oral Tablet 2018-12-01 16:27:00 Yes 1 tab, PO, Daily, # 90 tab, 1 Refill(s), Pharmacy: [facility], D/C amlodipine/olmesartan/HCTZ [facility] Clonidine Hydrochloride 0.2 MG Oral Tablet 2018-12-01 16:27:00 Yes 0.2 mg = 1 tab, PO, BID, # 180 tab, 1 Refill(s), Pharmacy: [facility] Clonidine Hydrochloride 0.1 MG Oral Tablet 2018-11-04 00:46:14 Yes = 1 tab, PO, BID, # 180 tab, Refill(s) 1, Pharmacy: [facility] Metoprolol Succinate ER 50 mg oral tablet, extended release 2018-08-07 19:30:00 No 50 mg = 1 tab, PO, Daily, # 90 tab, 1 Refill(s), Pharmacy: [facility] Amlodipine 10 MG / Hydrochlorothiazide 2 5 MG / Olmesartan medoxomil 40 MG Oral Tablet 2018-08-07 19:30:00 No 1 tab, PO, Daily, # 90 tab, 1 Refill(s), Pharmacy: [facility], Stop amlodipine/HCTZ/valsartan [facility] baclofen 10 mg oral tablet 2018-06-19 18:17:12 Yes 10 mg = 1 tab, PO, BID, PRN Spasms, # 40 tab, 0 Refill(s), [facility] [address] Azithromycin 5 Day Dose Pack 250 mg oral tablet 2018-06-19 18:17 :00 No See Instructions, Take 2 tab lets by mouth the first day then 1 tablet by mouth days 2-5., X 5 day, # 6 tab, 0 Refill(s), Pharmacy: [address] diclofenac sodium 75 mg oral enteric coated, delayed-release tablet 2018-06-19 18:16:00 Yes 75 mg = 1 tab, PO, BID, PRN Pain, # 40 tab, 0 Refill(s), [facility] [address] Amlodipine 10 MG / Hydrochlorothiazide 2 5 MG / Olmesartan medoxomil 40 MG Oral Tablet 2018-04-05 21:50:00 No 1 tab, PO, Daily, X 90 day, # 90 tab, 1 Refill(s), Pharmacy: [facility], Stop amlodipine/HCTZ/valsartan [facility] Clonidine Hydrochloride 0.1 MG Oral Tablet 2017-11-03 02:15:00 Yes 0.1 mg = 1 tab, PO, BID, # 180 tab, 1 Refill(s), Pharmacy: [facility] Amlodipine 10 MG / Hydrochlorothiazide 25 MG / valsartan 320 MG Oral Tablet 2017-11-03 02:15:00 Yes 1 tab, PO, Daily, # 90 tab, 1 Refill(s), Pharmacy: [facility], Discontinue Tribenzor HCT [facility] Metoprolol Succinate ER 50 mg oral tablet, extended release 2017-10-07 20:58:00 No 50 mg = 1 tab, PO, Daily, # 90 tab, 1 Refill(s), Pharmacy: [facility] Steffanie Huizar Hydrocortisone butyrate 0.001 MG/MG Topical Ointment 2 15:49:00 Yes 1 appl, CHEY, SUSAN Gregory skin irritation, # 15 gm, 0 Refill(s), Pharmacy: [facility]/pharmacy #[id number] Charu Khan METOPROLOL SUCCINATE ER 50 MG [id number] 2015-01-16 00:00:00 Yes Take one tablet by mouth daily. Charu genao TRIBENZOR 40-10-25 MG TABS 2015-01-16 00:00:00 Yes Take one tablet by mouth daily. Charu Khan CLONIDINE HCL 0.1 MG TABS 2015-01-16 00:00:00 Yes Take one tablet by mouth twice daily. Charu Khan ECOTRIN LOW STRENGTH 81 MG TBEC 2015-01-16 00:00:00 Yes Take one tablet by mouth daily. Charu Khan LATANOPROST 0.005 % SOLN 2015-01-16 00:00:00 Yes instill 1 drop into both eyes at bedtime Charu Khan VITAMIN E CAPS 2015-01-16 00:00:00 Yes Take one capsule by mouth daily. Charu Khan VITAMIN D TABS 2015-01-16 00:00:00 Yes Take one tablet by mouth daily. Charu Khan VITAMIN B COMPLEX TABS 2015-01-16 00:00:00 Yes Take one tablet by mouth daily. Charu Khan JOBST FOR MEN 15-20MMHG LG MISC 2015-01-16 00:00:00 Yes Use during waking hours and remove at bedtime. Eliel Khan METOPROLOL SUCCINATE ER 50 MG [id number] 2015-01-16 00:00:00 Yes Take one tablet by mouth daily. Charu genao Vital Signs Vital Name Observation Time Observation Value Comments Source Systolic (mm Hg) 2019-03-09 15:42:00 Eliel Khan Diastolic (mm Hg) 2019-03-09 15:42:00 Tay Khan Heart Rate 2019-03-09 15:42:00 Charu Khan Respitory Rate 2019-03-09 15:42:00 Steffanie Huizar Temperature Oral (F) 2019-03-09 15:42:00 97.2 F Charu Khan Height 2019-03-09 15:42:00 177.8 cm Charu Khan Weight 2019-03-09 15:42:00 [facility] BMI Calculated 2019-03-09 15:42:00 [facility] Systolic (mm Hg) 2019-01-31 12:59:00 [facility] [place] Diastolic (mm Hg) 2019-01-31 12:59:00 [facility] Heart Rate 2019-01-31 12:59:00 [facility] Respitory Rate 2019-01-31 12:59:00 [facility] Temperature Oral (F) 2019-01-31 12:59:00 97.1 F [facility] Height 2019-01-31 12:59:00 177.8 cm [facility] Weight 2019-01-31 12:59:00 [facility] BMI Calculated 2019-01-31 12:59:00 [facility] [place] Height 2019-01-15 16:26:00 177.8 cm [facility] Weight 2019-01-15 16:26:00 [facility] BMI Calculated 2019-01-15 16:26:00 [facility] [place] Systolic (mm Hg) 2019-01-15 16:26:00 Eliel rial Bill Diastolic (mm Hg) 2019-01-15 16:26:00 [facility] [place] Temperature Oral (F) 2019-01-15 16:26:00 97.2 F [facility] Respitory Rate 2019-01-15 16:26:00 [facility] Heart Rate 2019-01-15 16:26:00 [facility] Height 2018-12-01 15:55:00 177.8 cm [facility] BMI Calculated 2018-12-01 15:55:00 [facility] Weight 2018-12-01 15:55:00 [facility] Systolic (mm Hg) 2018-12-01 15:55:00 Eliel rial Bill Diastolic (mm Hg) 2018-12-01 15:55:00 [facility] [place] Heart Rate 2018-12-01 15:55:00 [facility] Temperature Oral (F) 2018-12-01 15:55:00 96.8 F [facility] Respitory Rate 2018-12-01 15:55:00 [facility] [place] Height 2018-08-04 17:28:00 177.8 cm [facility] Weight 2018-08-04 17:28:00 [facility] BMI Calculated 2018-08-04 17:28:00 [facility] [place] Systolic (mm Hg) 2018-08-04 17:28:00 Eliel rial Bill Diastolic (mm Hg) 2018-08-04 17:28:00 [facility] [place] Respitory Rate 2018-08-04 17:28:00 [facility] [place] Temperature Oral (F) 2018-08-04 17:28:00 97 F [facility] Heart Rate 2018-08-04 17:28:00 [facility] Height 2018-06-19 17:46:00 177.8 cm [facility] Temperature Oral (F) 2018-06-19 17:46:00 98.9 F [facility] Weight 2018-06-19 17:46:00 [facility] BMI Calculated 2018-06-19 17:46:00 [facility] [place] Systolic (mm Hg) 2018-06-19 17:46:00 [facility] [place] Diastolic (mm Hg) 2018-06-19 17:46:00 [facility] [place] Respitory Rate 2018-06-19 17:46:00 [facility] Heart Rate 2018-06-19 17:46:00 [facility] BMI Calculated 2018-06-05 17:44:00 [facility] [place] Weight 2018-06-05 17:44:00 [facility] Height 2018-06-05 17:44:00 177.8 cm [facility] Systolic (mm Hg) 2018-06-05 17:44:00 [facility] [place] Diastolic (mm Hg) 2018-06-05 17:44:00 [facility] [place] Heart Rate 2018-06-05 17:44:00 [facility] Respitory Rate 2018-06-05 17:44:00 [facility] Temperature Oral (F) 2018-06-05 17:44:00 98.1 F [facility] Weight 2018-04-04 14:09:00 [facility] BMI Calculated 2018-04-04 14:09:00 [facility] Temperature Oral (F) 2018-04-04 14:09:00 97 F [facility] Height 2018-04-04 14:09:00 172.72 cm [facility] Systolic (mm Hg) 2018-04-04 14:09:00 Eliel rial Bill Diastolic (mm Hg) 2018-04-04 14:09:00 [facility] Respitory Rate 2018-04-04 14:09:00 [facility] [place] Heart Rate 2018-04-04 14:09:00 [facility] BMI Calculated 2017-12-02 13:35:00 [facility] Height 2017-12-02 13:35:00 177.8 cm [facility] Weight 2017-12-02 13:35:00 [facility] Systolic (mm Hg) 2017-12-02 13:35:00 Eliel rial Bill Diastolic (mm Hg) 2017-12-02 13:35:00 [facility] Respitory Rate 2017-12-02 13:35:00 [facility] [place] Heart Rate 2017-12-02 13:35:00 [facility] Temperature Oral (F) 2017-12-02 13:35:00 97.4 F [facility] Height 2017-08-23 15:15:00 177.8 cm [facility] BMI Calculated 2017-08-23 15:15:00 [facility] Weight 2017-08-23 15:15:00 [facility] Systolic (mm Hg) 2017-08-23 15:15:00 Eliel rial Bill Diastolic (mm Hg) 2017-08-23 15:15:00 [facility] Temperature Oral (F) 2017-08-23 15:15:00 97.6 F [facility] Heart Rate 2017-08-23 15:15:00 [facility] Respitory Rate 2017-08-23 15:15:00 [facility] [place] Weight 2015-01-16 19:19:40 [facility] Height 2015-01-16 19:19:40 [facility] Temperature Oral (F) 2015-01-16 19:19:40 97.9 F [facility] Respitory Rate 2015-01-16 19:19:40 [facility] Systolic (mm Hg) 2015-01-16 19:19:40 [facility] [place] Diastolic (mm Hg) 2015-01-16 19:19:40 [facility] [place] Heart Rate 2015-01-16 19:19:40 [facility] Procedures Procedure Date / Time Performed Performing Clinician Sourc e Colonoscopy<sup>1</sup> 2018-05-22 06:00:00 Eliel rial Bill Influenza vaccination 2018-04-04 05:00:00 [facility] [place] Glaucoma monitoring<sup>2</sup> 2018-02-15 05:00:00 [facility] Glaucoma monitoring<sup>3</sup> 2017-11-21 05:00:00 [facility] Glaucoma monitoring<sup>4</sup> 2017-08-29 06:00:00 [facility] Glaucoma monitoring<sup>5</sup> 2017-05-17 05:00:00 [facility] Comprehensive eye examination<sup>4</sup> 2016-09-15 00:00:00 [facility] Pneumococcal vaccination<sup>5</sup> 2013-07-23 06:00:00 [facility] Colonoscopy<sup>6</sup> 2011-07-18 00:00:00 Eliel maldonado [place] Foot joint operations<sup>7</sup> [facility] Knee joint operation<sup>8</sup> [facility] Encounters Start Date/Time End Date/Time Encounter Type Admission Type [facility] Care Department Encounter ID Source 2019-08-01 09:47:00 2019-08-01 23:59:00 Outpatient Elsa Hassan [facility] [id number] 2019-08-01 09:47:00 2019-08-01 09:47:00 Outpatient [id number] 2019-06-19 09:41:00 2019-06-19 23:59:00 Outpatient Elsa Hassan [facility] [id number] 2019-04-03 11:00:00 2019-04-03 11:00:00 Outpatient S Yesi taylor Salvargelia [facility] [id number] 2019-04-03 10:45:00 2019-04-03 10:45:00 Outpatient S Yesi taylor Salvargelia [facility] [id number] 2019-03-21 05:22:47 2019-03-22 05:22:47 Outpatient [facility] [id number] 2019-03-16 09:06:00 2019-03-16 23:59:00 Outpatient S Yesi taylor Samedevanga Salvacion [facility] [id number] 2019-03-09 10:45:00 2019-03-09 23:59:59 Outpatient S Yesi taylor [facility] [id number] 2019-01-31 08:00:00 2019-01-31 23:59:59 Outpatient S Yesi taylor [facility] [id number] 2019-01-23 16:52:30 2019-01-24 23:59:59 Outpatient [facility] [id number] 2019-01-15 10:45:00 2019-01-15 23:59:59 Outpatient S Yesi tayloracion [facility] [place] [id number] 2018-12-01 10:45:00 2018-12-01 23:59:59 Outpatient S Yesi taylor [facility] [id number] 2018-11-03 19:45:00 2018-11-04 23:59:59 Outpatient [facility] [id number] 2018-08-07 13:26:00 2018-08-08 23:59:59 Outpatient [facility] [id number] 2018-08-07 13:26:00 2018-08-08 23:59:59 Outpatient [facility] [id number] 2018-08-04 11:00:00 2018-08-04 23:59:59 Outpatient S Yesi taylor [facility] [id number] 2018-06-19 11:30:00 2018-06-19 23:59:59 Outpatient S Yesi taylor Salvacion [facility] [id number] 2018-06-05 11:30:00 2018-06-05 23:59:59 Outpatient S Yesi taylora Salvacion [facility] [id number] 2018-04-04 09:00:00 2018-04-04 23:59:59 Outpatient S Yesi taylora Salvacion [facility] [id number] 2017-12-02 09:00:00 2017-12-02 23:59:59 Outpatient S Yesi taylora Kevinacion [facility] [id number] 2017-11-02 08:59:00 2017-11-03 23:59:59 Outpatient [facility] [id number] 2017-10-07 15:14:00 2017-10-08 23:59:59 Outpatient [facility] [id number] 2017-08-23 09:00:00 2017-08-23 23:59:59 Outpatient Yesi Rahman [facility] [id number] 2017-08-23 09:00:00 2017-08-23 23:59:59 Outpatient S Yesi taylor [facility] [id number] 2017-01-19 14:00:00 2017-01-19 23:59:00 Outpatient Yesi Rahman [facility] [id number] Results Test Description Test Time Test Comments Results Result Comments Source CHEST 2 VIEWS 2020-02-08 14:35:00 [place] [address] Patient Name: KELSI KAMINSKI SR MR #: [id number] : 1950 Age/Sex: 69/M Req #: [id number] [facility] Physician: Ordered by: MARIKA JADE MD Report #: [id number] Location: OR Room/Bed: Procedure: [id number] DX/CHEST 2 VIEWS Exam Date: 02/08/20 Exam Time: 1405 REPORT STATUS: Signed EXAMINATION: CHEST 2 VIEWS INDICATION: Pre-operative COMPARISON: None FINDINGS: LINES/TUBES:None LUNGS:The lungs are well-inflated. No focal consolidation or pulmonary edema. PLEURA:No pleural effusion or pneumothorax. MEDIASTINUM:The cardiomediastinal silhouette appears normal in size and shape. BONES/SOFT TISSUES:No acute osseous injury. ABDOMEN:No free air under the diaphragm. IMPRESSION: No focal pneumonia or pulmonary edema. Signed by: Sheela Lara MD on 02/08/2020 2:35 PM Dictated By: SHEELA LARA MD 34 Transcribed By: DINORA on 02/08/201434 COPY TO: MARIKA JADE MD BASIC METABOLIC PANEL 2019-12-20 15:33:00 Test Item SODIUM (test code = NA) 143 mEq/L 134-147 N POTASSIUM (test code = K) 3.3 mEq/L 3.4-5.0 L CHLORIDE (test code = CL) 106 mEq/L 100-108 N CARBON DIOXIDE (test code = CO2) 34 mEq/L 21-33 H ANION GAP (test code = GAP) 6 0-20 N GLUCOSE (test code = GLU) 100 mg/dL 70-110 N BLOOD UREA NITROGEN (test code = BUN) 14 mg/dL 7-18 N GLOMERULAR FILTRATION RATE (test code = GFR) 111.2 70-80 H Units of measure = ml/min/1.73 m2 CREATININE (test code = CREAT) 0.7 mg/dL 0.6-1.3 N CALCIUM (test code = CA) 9.2 mg/dL 8.0-10.5 N [id number] 15:33:00* Test Item Value Reference Range Interpretation Comments MAGNESIUM (test code = MAG) 1.70 mg/dL 1.8-2.4 L [id number] 12:36:00* Test Item Value Reference Range Interpretation Comments ACT-ISTAT (test code = ACTI) 378 SEC 74-137 H Performed by certified insulation board head saw operator at [facility] [id number] 12:19:00* Test Item Value Reference Range Interpretation Comments ACT-ISTAT (test code = ACTI) 335 SEC 74-137 H Performed by certified insulation board head saw operator at [facility] [id number] 11:52:00* Test Item Value Reference Range Interpretation Comments ACT-ISTAT (test code = ACTI) 378 SEC 74-137 H Performed by certified insulation board head saw operator at [facility] Novel Coronavirus 2019 [id number] 23:26:00* Test Item Value Reference Range Interpretation Comments Novel Coronavirus 2019 Inhouse (test code = COVNONPUI) Negative Negative - XR CHEST 2 [id number] 11:43:00 FAX: Sirisha Reilly [phone] [place]: St: PRE FAX: Samaria Green MD [phone] Name: KELSI KAMINSKI [facility] : 1950 Age/S: 69/M [address] [place] [address] Unit #: [id number] Loc: [place] [address] Phys: Samaria Garcia MD Acct: [id number] Dis Date: Status: PRE SDC PHONE #: [phone] Exam Date: 12/18/2019 1105 FAX #: [phone] Reason: PRE-OP ABLATION EXAMS: CPT CODE: [id number] XR CHEST 2 V 94889 Clinical Indication: Atrial fibrillation. Preop ablation. Comparison: None available. Impression: Chest, 2 views. Cardiomegaly without failure. No consolidation, pleural effusion, or pneumothorax. No acute osseous abnormality. SL: [id number] at 1143 Reported and signed by: Lety Davison M.D. CC: Sirisha Arguello MD; Samaria Garcia MD Technologist: RT Marina(Guillaume) Trnscrd Date/Time/By: 12/18/2019 (1143) : By: [email or web address] Orig Print D/T: S: 12/18/2019 (4214) PAGE 1 Signed Report BASIC METABOLIC [id number] 11:41:00* Test Item Value Reference Range Interpretation Comments SODIUM (test code = NA) 142 mEq/L 134-147 N POTASSIUM (test code = K) 4.3 mEq/L 3.4-5.0 N CHLORIDE (test code = CL) 102 mEq/L 100-108 N CARBON DIOXIDE (test code = CO2) 36 mEq/L 21-33 H ANION GAP (test code = GAP) 8 0-20 N GLUCOSE (test code = GLU) 114 mg/dL 70-110 H BLOOD UREA NITROGEN (test code = BUN) 17 mg/dL 7-18 N GLOMERULAR FILTRATION RATE (test code = GFR) 83.2 70-80 H Units of measure = ml/min/1.73 m2 CREATININE (test code = CREAT) 0.9 mg/dL 0.6-1.3 N CALCIUM (test code = CA) 10.8 mg/dL 8.0-10.5 H BASIC METABOLIC [id number] 11:37:00* Test Item Value Reference Range Interpretation Comments SODIUM (test code = NA) 142 mEq/L 134-147 N POTASSIUM (test code = K) 4.3 mEq/L 3.4-5.0 N CHLORIDE (test code = CL) 102 mEq/L 100-108 N CARBON DIOXIDE (test code = CO2) 36 mEq/L 21-33 H ANION GAP (test code = GAP) 8 0-20 N GLUCOSE (test code = GLU) 114 mg/dL 70-110 H BLOOD UREA NITROGEN (test code = BUN) 17 mg/dL 7-18 N GLOMERULAR FILTRATION RATE (test code = GFR) 70-80 CREATININE (test code = CREAT) mg/dL 0.6-1.3 CALCIUM (test code = CA) 10.8 mg/dL 8.0-10.5 H CBC W/AUTO [id number] 11:23:00* Test Item Value Reference Range Interpretation Comments WHITE BLOOD CELL (test code = WBC) 7.68 x10 3/uL 4.5-11.0 N RED BLOOD CELL (test code = RBC) 6.15 x10 6/uL 4.00-5.60 H HEMOGLOBIN (test code = HGB) 18.1 g/dL 12.5-16.9 H HEMATOCRIT (test code = HCT) 56.9 % 37.5-50.7 H MEAN CELL VOLUME (test code = MCV) 92.5 fL 81.0-99.0 N MEAN CELL HGB (test code = MCH) 29.4 pg 27.0-33.0 N MEAN CELL HGB CONCETRATION (test code = MCHC) 31.8 g/dL 33.0-37. 0 L RED CELL DISTRIBUTION WIDTH CV (test code = RDW) 13.9 % 11.5- 14.5 N RED CELL DISTRIBUTION WIDTH SD (test code = RDW-SD) 46.4 fL 37 .0-54.0 N PLATELET COUNT (test code = PLT) 243 x10 3/uL 150-400 N MEAN PLATELET VOLUME (test code = MPV) 9.9 fL 7.0-9.0 H NEUTROPHIL % (test code = NT%) 70.1 % 56.0-77.0 N IMMATURE GRANULOCYTE % (test code = IG%) 0.3 % 0.0-2.0 N LYMPHOCYTE % (test code = LY%) 20.3 % 14.0-32.0 N MONOCYTE % (test code = MO%) 6.6 % 4.8-9.0 N EOSINOPHIL % (test code = EO%) 1.8 % 0.3-3.7 N BASOPHIL % (test code = BA%) 0.9 % 0.0-2.0 N NUCLEATED RBC % (test code = NRBC%) 0.0 % 0-0 N NEUTROPHIL # (test code = NT#) 5.38 x10 3/uL 2.0-7.6 N IMMATURE GRANULOCYTE # (test code = IG#) 0.02 x10 3/uL 0.00-0.03 N LYMPHOCYTE # (test code = LY#) 1.56 x10 3/uL 1.0-3.8 N MONOCYTE # (test code = MO#) 0.51 x10 3/uL 0.1-0.8 N EOSINOPHIL # (test code = EO#) 0.14 x10 3/uL 0.0-0.2 N BASOPHIL # (test code = BA#) 0.07 x10 3/uL 0.0-0.2 N NUCLEATED RBC # (test code = NRBC#) 0.00 x10 3/uL 0.0-0.1 N MANUAL DIFF REQUIRED (test code = MDIFF) NO PROTHROMBIN [id number] 11:06:00* Test Item Value Reference Range Interpretation Comments PROTHROMBIN TIME PATIENT (test code = PTP) 14.8 SECONDS 9.3-12.9 H INTERNATIONAL NORMAL RATIO (test code = INR) 1.4 0.8-1.2 H TARGET INR BY INDICATION Indication INR1. Prophylaxis of venous thrombosis 2.0 - 3.0 (orthopedic surgery), Prophylaxis of venous thrombosis (other than high-risk surgery), Treatment of Deep Vein Thrombosis/Pulmonary Embolism, Prevention of systemic embolism - Tissue heart valves, Acute Myocardial Infarction (to prevent systemic embolism), Valvular heart disease, Atrial Fibrillation, Bileaflet mechanical valve in aortic position.2. Mechanical prosthetic valves (high risk), 2.5 - 3.5 Presence of Lupus Anticoagulant or Antiphospholipid Antibodies, Prevention of systemic embolism - Acute Myocardial Infarction (to prevent recurrent infarct). Novel Coronavirus 2019 [id number] 07:16:00* Test Item Value Reference Range Interpretation Comments Novel Coronavirus 2019 Inhouse (test code = COVNONPUI) Negative Negative PROTHROMBIN [id number] 16:18:00* Test Item Value Reference Range Interpretation Comments PROTHROMBIN TIME PATIENT (test code = PTP) 14.8 SECONDS 9.3-12.9 H INTERNATIONAL NORMAL RATIO (test code = INR) 1.4 0.8-1.2 H TARGET INR BY INDICATION Indication INR1. Prophylaxis of venous thrombosis 2.0 - 3.0 (orthopedic surgery), Prophylaxis of venous thrombosis (other than high-risk surgery), Treatment of Deep Vein Thrombosis/Pulmonary Embolism, Prevention of systemic embolism - Tissue heart valves, Acute Myocardial Infarction (to prevent systemic embolism), Valvular heart disease, Atrial Fibrillation, Bileaflet mechanical valve in aortic position.2. Mechanical prosthetic valves (high risk), 2.5 - 3.5 Presence of Lupus Anticoagulant or Antiphospholipid Antibodies, Prevention of systemic embolism - Acute Myocardial Infarction (to prevent recurrent infarct). CBC W/AUTO [id number] 16:18:00* Test Item Value Reference Range Interpretation Comments WHITE BLOOD CELL (test code = WBC) 8.03 x10 3/uL 4.5-11.0 N RED BLOOD CELL (test code = RBC) 6.28 x10 6/uL 4.00-5.60 H HEMOGLOBIN (test code = HGB) 18.4 g/dL 12.5-16.9 H HEMATOCRIT (test code = HCT) 57.0 % 37.5-50.7 H MEAN CELL VOLUME (test code = MCV) 90.8 fL 81.0-99.0 N MEAN CELL HGB (test code = MCH) 29.3 pg 27.0-33.0 N MEAN CELL HGB CONCETRATION (test code = MCHC) 32.3 g/dL 33.0-37. 0 L RED CELL DISTRIBUTION WIDTH CV (test code = RDW) 13.6 % 11.5- 14.5 N RED CELL DISTRIBUTION WIDTH SD (test code = RDW-SD) 45.4 fL 37 .0-54.0 N PLATELET COUNT (test code = PLT) 224 x10 3/uL 150-400 N MEAN PLATELET VOLUME (test code = MPV) 9.6 fL 7.0-9.0 H NEUTROPHIL % (test code = NT%) 71.1 % 56.0-77.0 N IMMATURE GRANULOCYTE % (test code = IG%) 0.4 % 0.0-2.0 N LYMPHOCYTE % (test code = LY%) 19.7 % 14.0-32.0 N MONOCYTE % (test code = MO%) 6.7 % 4.8-9.0 N EOSINOPHIL % (test code = EO%) 1.1 % 0.3-3.7 N BASOPHIL % (test code = BA%) 1.0 % 0.0-2.0 N NUCLEATED RBC % (test code = NRBC%) 0.0 % 0-0 N NEUTROPHIL # (test code = NT#) 5.71 x10 3/uL 2.0-7.6 N IMMATURE GRANULOCYTE # (test code = IG#) 0.03 x10 3/uL 0.00-0.03 N LYMPHOCYTE # (test code = LY#) 1.58 x10 3/uL 1.0-3.8 N MONOCYTE # (test code = MO#) 0.54 x10 3/uL 0.1-0.8 N EOSINOPHIL # (test code = EO#) 0.09 x10 3/uL 0.0-0.2 N BASOPHIL # (test code = BA#) 0.08 x10 3/uL 0.0-0.2 N NUCLEATED RBC # (test code = NRBC#) 0.00 x10 3/uL 0.0-0.1 N MANUAL DIFF REQUIRED (test code = MDIFF) NO BASIC METABOLIC [id number] 16:10:00* Test Item Value Reference Range Interpretation Comments SODIUM (test code = NA) 140 mEq/L 134-147 N POTASSIUM (test code = K) 3.5 mEq/L 3.4-5.0 N CHLORIDE (test code = CL) 100 mEq/L 100-108 N CARBON DIOXIDE (test code = CO2) 35 mEq/L 21-33 H ANION GAP (test code = GAP) 9 0-20 N GLUCOSE (test code = GLU) 92 mg/dL 70-110 N BLOOD UREA NITROGEN (test code = BUN) 22 mg/dL 7-18 H GLOMERULAR FILTRATION RATE (test code = GFR) 83.2 70-80 H Units of measure = ml/min/1.73 m2 CREATININE (test code = CREAT) 0.9 mg/dL 0.6-1.3 N CALCIUM (test code = CA) 10.4 mg/dL 8.0-10.5 N BASIC METABOLIC [id number] 16:07:00* Test Item Value Reference Range Interpretation Comments SODIUM (test code = NA) 140 mEq/L 134-147 N POTASSIUM (test code = K) 3.5 mEq/L 3.4-5.0 N CHLORIDE (test code = CL) 100 mEq/L 100-108 N CARBON DIOXIDE (test code = CO2) 35 mEq/L 21-33 H ANION GAP (test code = GAP) 9 0-20 N GLUCOSE (test code = GLU) 92 mg/dL 70-110 N BLOOD UREA NITROGEN (test code = BUN) 22 mg/dL 7-18 H GLOMERULAR FILTRATION RATE (test code = GFR) 70-80 CREATININE (test code = CREAT) mg/dL 0.6-1.3 CALCIUM (test code = CA) 10.4 mg/dL 8.0-10.5 N [id number] 15:03:00[facility] QunazeaEhkkzbsby8011-92-27 15:02:00 [facility] TtxuqnrPwfwsfrtg8737-28-72 15:01:00NegativeMem[facility] Bill Drixwyfds7072-32-47 21:10:003.310[facility] LwqjtblGnjqxoins5937-41-14 21:10:79315 [facility] XabaactTwleiizfg6638-31-91 21:10:30906Ezlbjvmk [facility] 2015-01-16 21:10:0037[facility] EsrtnctFpxogowmv8047-07-77 21:10:12433Rcqqticg MtxrwcqMzlsbtotr7980-86-77 21:10:09683 MEQ/LMemorial PcprrogGcsrnpkjt7349-25-95 21:10:003.8 MEQ/LMemorial YbqgnwyGmvirizpd2895-54-28 21:10:001.0[facility] Llrazzanb4441-36-24 21:10:0013[facility] HprmkhfZdjosughs1888-00-82 21:10:00* Test Item Value Reference Range Interpretation Comments BUN/CREAT (test code = BUN/CREAT) 13 1 6 [facility] IwqwfsbFdlzlrywa7101-92-13 21:10:003.8[facility] 2015-01-16 21:10:0010.2[facility] HgrbbgsZgcjbgcod0639-49-49 21:10:0044[facility] QkucqigWodlvaaty1066-32-08 21:10:0027[facility] HojwfvpLamncrxsv2776-47-60 21:10:0065[facility] JywnedzZgzrdxtgd7046-86-81 21:10:000.37[facility] Hifvpyzdwt9098-47-28 21:10:0017.0[facility] CbvlfdnKghvidjdpi6457-63-91 21:10:00 51.5Memorial HjxsedxVqyysiklyn1317-13-48 21:10:50137 K/CMMMem[facility]field
== END 2020-02-15 14:14 | disposition home or self-care (01) | DRG 714 ==
LOC: OR 06:27 → PACU V 10:00 → MED/SURG 11:27
PROVIDERS: ADMIT Urology; ATTEND Urology
PROC: 0TCB8ZZ Extirpation of Matter from Bladder, Via Natural or Artificial Opening Endoscopic (ICD-10-PCS; 2020-02-14)
PROC: 0V508ZZ Destruction of Prostate, Via Natural or Artificial Opening Endoscopic (ICD-10-PCS; principal; 2020-02-14 08:30)
DX: N40.1 Benign prostatic hyperplasia with lower urinary tract symptoms (principal); R33.8 Other retention of urine; N21.0 Calculus in bladder; Z11.59 Encounter for screening for other viral diseases; E66.9 Obesity, unspecified; E88.2 Lipomatosis, not elsewhere classified; E78.5 Hyperlipidemia, unspecified; G47.33 Obstructive sleep apnea (adult) (pediatric); I15.9 Secondary hypertension, unspecified; E83.52 Hypercalcemia
CPT/HCPCS: 36415; 71046; 80053; 85025; 87086; 88300; 88305; J0330; J0461; J0690; J1100; J2001; J2405; J2710; U0002